=== PATIENT | male | born 1985 | race Caucasian/White ===

== ENCOUNTER 2021-10-10 08:36 | Day surgery (SDC) | payer OTHER ==
[~2021-10-10] VITALS: Ht 172.7 cm; Wt 106.4 kg
--- NOTE | 2021-10-10 11:07 | NUR ---
10/10/21 1107 SUSAN MCBRIDE PT WAS SLOW TO WAKE AND STILL GROGGY AT DC. EDUCATION WAS PROVIDED REGARDING POSSIBLE SLOWER METABOLISM OF THE PROPOFOL IN HIS SYSTEM DUE TO HIS LIVER DZ. ADVISED TO HOUSE REST AND HAVE SOMEONE CLOSE BY UNTIL SEDATION AFFECTS WEAR OFF. PT STATED THAT HE WAS AWAKE AND READY TO DC. PT WAS ABLE TO STAND AND WALK BUT RN WHEELED PT TO CAR.
== END 2021-10-10 10:50 | disposition home or self-care (01) ==
LOC: ORSCSDS 08:36
PROVIDERS: Student in an Organized Health Care Education/Training Program
PROC: 06L38CZ Occlusion of Esophageal Vein with Extraluminal Device, Via Natural or Artificial Opening Endoscopic (ICD-10-PCS; principal; 2021-10-10 09:45)
DX: K74.60 Unspecified cirrhosis of liver (principal); K76.6 Portal hypertension; K31.89 Other diseases of stomach and duodenum; I85.00 Esophageal varices without bleeding; K21.9 Gastro-esophageal reflux disease without esophagitis; E66.9 Obesity, unspecified; Z68.36 Body mass index [BMI] 36.0-36.9, adult; Z79.899 Other long term (current) drug therapy
CPT/HCPCS: J2405; J2704; J7120

== ENCOUNTER 2021-12-07 10:12 | Day surgery (SDC) | payer OTHER ==
[~2021-12-07] VITALS: Ht 175.3 cm; Wt 110.6 kg
[~2021-12-07 10:12] MED LIST: ALDACTONE25 MG; Inderal 20 mg T20 MG PO; PANTOPRAZOLE SO20 M1 PO
--- NOTE | 2021-12-07 10:43 | NUR ---
12/07/21 ANTOINE ALMAGUER 2 ATTMEPTS AT IV. FIRST ATTEMPT BY MA IN R HAND UNABLE TO ADVANCE. SECOND ATTEMPT BY MA IN R HAND SUCCESSFUL.
== END 2021-12-07 11:44 | disposition home or self-care (01) ==
LOC: ORSCSDS 10:12
PROVIDERS: Student in an Organized Health Care Education/Training Program
PROC: 0DJ08ZZ Inspection of Upper Intestinal Tract, Via Natural or Artificial Opening Endoscopic (ICD-10-PCS; principal; 2021-12-07 11:15)
DX: K70.30 Alcoholic cirrhosis of liver without ascites (principal); K76.6 Portal hypertension; K31.89 Other diseases of stomach and duodenum; I85.10 Secondary esophageal varices without bleeding; K21.9 Gastro-esophageal reflux disease without esophagitis; E66.9 Obesity, unspecified; Z68.36 Body mass index [BMI] 36.0-36.9, adult; Z79.899 Other long term (current) drug therapy
CPT/HCPCS: J2704; J7120

== ENCOUNTER 2022-03-20 14:33 | Day surgery (SDC) | payer OTHER | END 2022-03-20 23:24 | disposition home or self-care (01) | LOC: US 14:33 | DX: K70.31 Alcoholic cirrhosis of liver with ascites (principal) | CPT/HCPCS: 76705 ==

== ENCOUNTER 2022-04-07 08:42 | Emergency (ER) | payer OTHER ==
[~2022-04-07] VITALS: Ht 175.3 cm; Wt 115.7 kg
[2022-04-07 09:45] LABS: BASOPHILS ABSOLUTE AUTO 0.02 K/mm3 (0.00-0.23); BASOPHILS PERCENT AUTO 0 % (0-2); EOSINOPHILS ABSOLUTE AUTO 0.02 K/mm3 (0.00-0.68); EOSINOPHILS PERCENT AUTO 0 % (0-6); Hematocrit 46.8 % (37.0-53.0); Hemoglobin 16.4 g/dL (13.5-17.5); IMMATURE GRAN ABSOLUTE AUTO 0.03 K/mm3 (0.00-0.10); IMMATURE GRAN PERCENT AUTO 0 % (0-1); LYMPHOCYTES ABSOLUTE AUTO 1.11 K/mm3 (0.84-5.20); LYMPHOCYTES PERCENT AUTO 13 % (21-46); MONOCYTES ABSOLUTE AUTO 0.46 K/mm3 (0.16-1.47); MONOCYTES PERCENT AUTO 5 % (4-13); Mean Corpuscular HGB 31.6 pg (26.0-34.0); Mean Corpuscular Volume 90 fL (80-100); NEUTROPHILS ABSOLUTE AUTO 6.83 K/mm3 (1.96-9.15); NEUTROPHILS PERCENT AUTO 81 % (41-73); Platelet Count 94 K/mm3 (150-400); RDW Coefficient Variation 13.9 % (11.7-14.2); RDW Standard Deviation 46.4 fL (35.1-46.3); Red Blood Cell Count 5.19 M/mm3 (4.30-5.90); White Blood Cell Count 8.47 K/mm3 (4.00-11.30)
[2022-04-07] MEDS ORDERED: Robaxin750 MG PO (09:58)
[2022-04-07] MEDS ORDERED: CONSTULOSE10 GM/15 M PO (09:58)
[2022-04-07 10:07] LABS: Albumin, Blood 2.9 g/dL (3.4-5.0); Albumin/Globulin Ratio 0.6 (0.8-1.8); Bilirubin, Total 1.5 mg/dL (0.1-1.0); Bun/Creatinine Ratio 18.5 (12.0-20.0); Calcium, Blood 8.7 mg/dL (8.5-10.1); Creatinine, Blood 0.65 mg/dL (0.60-1.20); Globulin, Blood 5.1 g/dL (2.2-4.0); Potassium, Blood 4.7 mmol/L (3.5-5.5)
[2022-04-07 12:06] LABS: Source, Urine Clean Catch
[2022-04-07 12:14] LABS: Appearance, Urine Clear (Clear); Bilirubin, Urine Neg (Neg); Blood, Urine 4+ (Neg); Color, Urine Yellow (P-Yellow); Glucose Qualitative, Urine Neg (Neg); Ketones, Urine Neg (Neg); Leukocyte Esterase, Urine Neg (Neg); Nitrite, Urine Neg (Neg); Protein, Urine 2+ (Neg); Urobilinogen, Urine NORM (Normal); pH, Urine 6.5 (5.0-8.0)
[2022-04-07 12:36] LABS: Bacteria Rare /hpf; Red Blood Cells, Urine 0-2 /hpf (0-2); Squamous Epithelial Cells Rare /hpf (Few); White Blood Cells, Urine 0-2 /hpf (0-5)
[2022-04-07] MEDS ORDERED: IBUP800 PO (13:34)
[2022-04-07] MEDS ORDERED: ONDA4ODT MM (13:34)
== END 2022-04-07 14:11 | disposition home or self-care (01) ==
LOC: ER 08:42
PROVIDERS: Physician Assistant
DX: N23 Unspecified renal colic (principal); I10 Essential (primary) hypertension; Z87.891 Personal history of nicotine dependence; Z79.899 Other long term (current) drug therapy; Z87.442 Personal history of urinary calculi
CPT/HCPCS: 36415; 80053; 81001; 83690; 85025; J1885; J2270; J2405; J7030

== ENCOUNTER 2022-09-18 17:46 | Emergency (ER) | payer OTHER ==
[~2022-09-18] VITALS: Ht 175.3 cm; Wt 108.9 kg
[~2022-09-18 17:46] MED LIST changes: +CONSTULOSE10 GM/15 M PO; +IBUP800 PO; +ONDA4ODT MM; +Robaxin750 MG PO
[2022-09-18 18:23] LABS: BASOPHILS ABSOLUTE AUTO 0.02 K/mm3 (0.00-0.23); BASOPHILS PERCENT AUTO 0 % (0-2); EOSINOPHILS ABSOLUTE AUTO 0.01 K/mm3 (0.00-0.68); EOSINOPHILS PERCENT AUTO 0 % (0-6); Hematocrit 49.7 % (37.0-53.0); Hemoglobin 17.5 g/dL (13.5-17.5); IMMATURE GRAN ABSOLUTE AUTO 0.01 K/mm3 (0.00-0.10); IMMATURE GRAN PERCENT AUTO 0 % (0-1); LYMPHOCYTES ABSOLUTE AUTO 2.38 K/mm3 (0.84-5.20); LYMPHOCYTES PERCENT AUTO 34 % (21-46); MONOCYTES ABSOLUTE AUTO 0.41 K/mm3 (0.16-1.47); MONOCYTES PERCENT AUTO 6 % (4-13); Mean Corpuscular HGB 31.5 pg (26.0-34.0); Mean Corpuscular HGB Conc 35.2 g/dL (31.5-36.5); Mean Corpuscular Volume 90 fL (80-100); Mean Platelet Volume 11.8 fL (9.1-12.4); NEUTROPHILS ABSOLUTE AUTO 4.21 K/mm3 (1.96-9.15); NEUTROPHILS PERCENT AUTO 60 % (41-73); Platelet Count 112 K/mm3 (150-400); RDW Coefficient Variation 13.5 % (11.7-14.2); RDW Standard Deviation 44.1 fL (35.1-46.3); Red Blood Cell Count 5.55 M/mm3 (4.30-5.90); White Blood Cell Count 7.04 K/mm3 (4.00-11.30)
[2022-09-18 18:41] LABS: Source, Urine Clean Catch
[2022-09-18 18:42] LABS: Albumin/Globulin Ratio 0.9 (0.8-1.8); Bun/Creatinine Ratio 15.9 (12.0-20.0); Calcium, Blood 9.2 mg/dL (8.5-10.1); Creatinine, Blood 0.69 mg/dL (0.60-1.20); Globulin, Blood 4.4 g/dL (2.2-4.0); Potassium, Blood 3.7 mmol/L (3.5-5.5); Total Protein, Blood 8.4 g/dL (6.4-8.2)
[2022-09-18 19:07] LABS: Appearance, Urine Bloody (Clear); Blood, Urine 5+ (Neg); Color, Urine Red (P-Yellow); Glucose Qualitative, Urine Neg (Neg); Ketones, Urine 3+ (Neg); Leukocyte Esterase, Urine 2+ (Neg); Nitrite, Urine Pos (Neg); Protein, Urine 3+ (Neg); Urobilinogen, Urine 2+ (Normal)
[2022-09-18 19:17] LABS: Bilirubin, Urine 1+ (Neg)
[2022-09-18 19:21] LABS: Red Blood Cells, Urine TNTC /hpf (0-2); Squamous Epithelial Cells Rare /hpf (Few)
[2022-09-18 19:22] LABS: Bacteria Mod /hpf; Mucus Mod (0-Heavy)
[2022-09-18] MEDS ORDERED: CEPH500 PO (21:03)
[2022-09-18 21:15] VITALS: BP 139/86
== END 2022-09-18 21:27 | disposition home or self-care (01) ==
LOC: ER 17:46
PROVIDERS: Emergency Medicine
DX: N39.0 Urinary tract infection, site not specified (principal); I10 Essential (primary) hypertension; Z88.8 Allergy status to other drugs, medicaments and biological substances; Z87.891 Personal history of nicotine dependence
CPT/HCPCS: 74176; 80053; 81001; 85025; 87086; 96374; 96375; 99284-25; A9270; J0696; J3010

== ENCOUNTER 2022-10-15 10:49 | Emergency (ER) | payer OTHER ==
[~2022-10-15] VITALS: Ht 175.3 cm; Wt 102.1 kg
[~2022-10-15 10:49] MED LIST changes: +CEPH500 PO
[2022-10-15 11:02] VITALS: BP 153/85
[2022-10-15] MEDS ORDERED: Bactrim Ds Tab1 EACH PO (11:36)
[2022-10-15] MEDS ORDERED: CEPH500 PO (11:36)
== END 2022-10-15 15:50 | disposition home or self-care (01) ==
LOC: ER 10:49
DX: L08.9 Local infection of the skin and subcutaneous tissue, unspecified (principal); I10 Essential (primary) hypertension; Z79.899 Other long term (current) drug therapy; Z87.891 Personal history of nicotine dependence
CPT/HCPCS: 99282

== ENCOUNTER 2022-10-17 20:01 | Inpatient (IN) | payer OTHER ==
[~2022-10-17] VITALS: Ht 175.3 cm; Wt 97.7 kg
[~2022-10-17 20:01] MED LIST changes: +Bactrim Ds Tab1 EACH PO
[2022-10-17 21:03] LABS: BASOPHILS ABSOLUTE AUTO 0.01 K/mm3 (0.00-0.23); BASOPHILS PERCENT AUTO 0 % (0-2); EOSINOPHILS ABSOLUTE AUTO 0.02 K/mm3 (0.00-0.68); EOSINOPHILS PERCENT AUTO 0 % (0-6); Hemoglobin 15.8 g/dL (13.5-17.5); IMMATURE GRAN ABSOLUTE AUTO 0.02 K/mm3 (0.00-0.10); IMMATURE GRAN PERCENT AUTO 0 % (0-1); LYMPHOCYTES ABSOLUTE AUTO 2.18 K/mm3 (0.84-5.20); LYMPHOCYTES PERCENT AUTO 26 % (21-46); MONOCYTES ABSOLUTE AUTO 0.77 K/mm3 (0.16-1.47); MONOCYTES PERCENT AUTO 9 % (4-13); Mean Corpuscular HGB 31.4 pg (26.0-34.0); Mean Corpuscular HGB Conc 34.3 g/dL (31.5-36.5); Mean Corpuscular Volume 92 fL (80-100); Mean Platelet Volume 11.4 fL (9.1-12.4); NEUTROPHILS ABSOLUTE AUTO 5.44 K/mm3 (1.96-9.15); NEUTROPHILS PERCENT AUTO 65 % (41-73); Platelet Count 120 K/mm3 (150-400); RDW Coefficient Variation 13.8 % (11.7-14.2); RDW Standard Deviation 46.8 fL (35.1-46.3); Red Blood Cell Count 5.03 M/mm3 (4.30-5.90); White Blood Cell Count 8.44 K/mm3 (4.00-11.30)
[2022-10-17 21:27] LABS: Albumin, Blood 3.5 g/dL (3.4-5.0); Albumin/Globulin Ratio 0.8 (0.8-1.8); Bilirubin, Total 1.2 mg/dL (0.1-1.0); Bun/Creatinine Ratio 15.6 (12.0-20.0); Creatinine, Blood 0.71 mg/dL (0.60-1.20); Globulin, Blood 4.6 g/dL (2.2-4.0); Total Protein, Blood 8.1 g/dL (6.4-8.2)
[2022-10-17] MEDS ORDERED: SULTRIDS PO (23:46)
[2022-10-17] MEDS ORDERED: CEPH500 PO (23:47)
[2022-10-18 00:20] VITALS: BP 141/88
--- NOTE | 2022-10-18 04:51 | NUR ---
SHIFT SUMMARY 37 YR M ADMITTED THIS A.M. FOR CELLULITIS OF BLE. FULL CODE. ASSUMED CARE OF PT JUST AFTER MIDNIGHT. HE HAS MULTIPLE SCAB TYPR WOUNDS ON HIS LOWER EXTREMITIES AND INNER UPPER THIGHS THAT ARE RED, SWOLLEN, AND PAINFUL. HE IS A&O X 4 AND IS INDEPENDANT IN THE ROOM. ONCE HE WAS SETTLED IN HE ATE AND SLEPT.
[2022-10-18 05:07] VITALS: BP 133/69
[2022-10-18 06:00] LABS: BASOPHILS ABSOLUTE AUTO 0.02 K/mm3 (0.00-0.23); BASOPHILS PERCENT AUTO 0 % (0-2); EOSINOPHILS ABSOLUTE AUTO 0.07 K/mm3 (0.00-0.68); EOSINOPHILS PERCENT AUTO 1 % (0-6); Hematocrit 42.4 % (37.0-53.0); Hemoglobin 14.7 g/dL (13.5-17.5); IMMATURE GRAN ABSOLUTE AUTO 0.02 K/mm3 (0.00-0.10); IMMATURE GRAN PERCENT AUTO 0 % (0-1); LYMPHOCYTES ABSOLUTE AUTO 1.42 K/mm3 (0.84-5.20); LYMPHOCYTES PERCENT AUTO 21 % (21-46); MONOCYTES PERCENT AUTO 7 % (4-13); Mean Corpuscular HGB 31.5 pg (26.0-34.0); Mean Corpuscular HGB Conc 34.7 g/dL (31.5-36.5); Mean Corpuscular Volume 91 fL (80-100); Mean Platelet Volume 12.2 fL (9.1-12.4); NEUTROPHILS ABSOLUTE AUTO 4.86 K/mm3 (1.96-9.15); NEUTROPHILS PERCENT AUTO 71 % (41-73); Platelet Count 99 K/mm3 (150-400); RDW Coefficient Variation 13.9 % (11.7-14.2); RDW Standard Deviation 46.9 fL (35.1-46.3); Red Blood Cell Count 4.66 M/mm3 (4.30-5.90); White Blood Cell Count 6.89 K/mm3 (4.00-11.30)
[2022-10-18 06:21] LABS: Albumin/Globulin Ratio 0.7 (0.8-1.8); Bilirubin, Total 0.9 mg/dL (0.1-1.0); Bun/Creatinine Ratio 17.6 (12.0-20.0); Calcium, Blood 8.5 mg/dL (8.5-10.1); Creatinine, Blood 0.68 mg/dL (0.60-1.20); Globulin, Blood 4.1 g/dL (2.2-4.0); Magnesium, Blood 2.1 mg/dL (1.6-2.4); Potassium, Blood 3.9 mmol/L (3.5-5.5); Total Protein, Blood 7.1 g/dL (6.4-8.2)
[2022-10-18 07:55] VITALS: BP 136/76
[2022-10-18 16:41] VITALS: BP 145/75
--- NOTE | 2022-10-18 17:33 | NUR ---
SUMMARY- NO ACUTE EVENTS THIS SHIFT. PT HAD MILD-MODERATE PAIN-WELL CONTROLLED WITH OXY 5MG. INDEPENDENT IN ROOM. AAOX4.
[2022-10-18 20:05] VITALS: BP 140/80
[2022-10-18 22:02] LABS: Vancomycin, Trough 10.9 ug/mL (5.0-10.0)
[2022-10-19 04:30] VITALS: BP 130/64
--- NOTE | 2022-10-19 04:33 | NUR ---
SHIFT SUMMARY 37 YR M ADMITTED ON 10/17/22 FOR CELLULITIS OF BLE. FULL CODE. NO ACUTE CHANGES THIS SHIFT. PT STATED THAT WHILE HE WAS IN THE SHOWER THIS EVENING HE WAS FEELING ONE OF THE BUMPS IN HIS LEFT ARMPIT AND HE FELT IT "POP" UNDER THE SKIN. HE C/O PAIN IN THE AREAS OF THE SORES W/ THE WORST BEING ON HIS LEFT INNER THIGH. THAT WAS THE LESION THAT A CULTURE SAMPLE WAS TAKEN FROM DURING THE LAST SHIFT. NO RESULTS YET. PAIN SEEMS TO BE WELL CONTROLLED WITH PAIN MEDS PER EMAR. PT IS A&O X 4 AND INDEPENDANT IN THE ROOM. HIS AND CHILDREN WERE AT BEDSIDE AT THE BEGINNING OG THIS SHIFT.
[2022-10-19 08:01] VITALS: BP 134/74
[2022-10-19 15:11] VITALS: BP 141/81
--- NOTE | 2022-10-19 18:42 | NUR ---
PT QUITE PLEASANT TODAY. DR LAZAR IN TO SEE PT. PLAN FOR I&D TOMORROW AM. WILL BE NPO MIDNITE AND FOLLOW WITH PROCEDURE IN AM. SAT AM. PT AMBULATED ABOUT ROOM INDEPENDANT PRN. MED PER EMAR FOR PAIN. NO NEW CONCERNS NOTED. BED IN LOW POSITION, CALL LITE IN REACH, CALLS APPRP
[2022-10-19 20:26] VITALS: BP 157/88
[2022-10-19 22:10] LABS: Vancomycin, Trough 12.6 ug/mL (5.0-10.0)
[2022-10-20] VITALS (15 sets, daily range): BP systolic 130–163; BP diastolic 70–88
[2022-10-20 07:03] LABS: Hematocrit 41.6 % (37.0-53.0); Hemoglobin 14.5 g/dL (13.5-17.5); Mean Corpuscular HGB 31.9 pg (26.0-34.0); Mean Corpuscular HGB Conc 34.9 g/dL (31.5-36.5); Mean Corpuscular Volume 91 fL (80-100); Mean Platelet Volume 11.9 fL (9.1-12.4); Platelet Count 100 K/mm3 (150-400); RDW Coefficient Variation 13.5 % (11.7-14.2); RDW Standard Deviation 45.9 fL (35.1-46.3); Red Blood Cell Count 4.55 M/mm3 (4.30-5.90); White Blood Cell Count 4.44 K/mm3 (4.00-11.30)
[2022-10-20 07:20] LABS: Bun/Creatinine Ratio 12.8 (12.0-20.0); Calcium, Blood 8.8 mg/dL (8.5-10.1); Creatinine, Blood 0.63 mg/dL (0.60-1.20); Potassium, Blood 3.8 mmol/L (3.5-5.5)
--- NOTE | 2022-10-20 07:44 | NUR ---
nicko had an uneventful night. BP slightly high in the 150's. patient was given Culbertson for left hip and thigh pain only once overnight. Toradol given also around 2300. NPO after 2400 for I&D this AM with Dr. Guzman. Vancomycin trough yesterday evening was 12.5 1500mg IV Vancomycin given after pharmacy confirmation. Did not want pain medication when offered this morning
--- NOTE | 2022-10-20 08:20 | NUR ---
0745 TO DAY SURG
--- NOTE | 2022-10-20 08:50 | NUR ---
10/20/22 0850 Nabeel Melchor I IODOFORM PACKING WAS USED ON FIVE OPERATIVE SITES; LEFT HIP, LEFT UPPER MEDIAL THIGH, RIGHT LOWER LATERAL LEG, RIGHT LOWER MEDIAL THIGH, AND LEFT AXILLA.
--- NOTE | 2022-10-20 11:52 | NUR ---
0915 MEDICAL TYPIST STATES PT DID WELL, 50 MCG FENTANYL FOR PAIN. HIP WAS WORST OF ISSUE. ALL LANCED. PACKED WITH IDAFORM, FOAM DRESSING OVER. TO TRANSFER BACK TO ROOM.
--- NOTE | 2022-10-20 17:17 | NUR ---
PT HAD I/D TODAY. TOLERATED WELL. DR DAWN TALKED TO [facility] INFECT DISEASE AND IS LOOKING TO SEE WHAT MED MAY BE SENT HOME ON AND IF CAN BE PO. DR LAZAR OKAY WITH REPLACE MEPILEX NEEDED. LEAVE PACKING IN IF CAN, BUT IF COMES OUT, OKAY. HE WILL SEE PT TOMORROW AND VIEW WOUND SITES. PAIN MANAGED WITH AVAIL MEDS. NO NEW CONCERNS NOTED. BED IN LOW POSITION, CALL LITE IN REACH, CALLS APROP
[2022-10-21 01:57] VITALS: BP 124/68
--- NOTE | 2022-10-21 07:23 | NUR ---
DRESSINGS REMAINED INTACT OVERNIGHT. LEFT THIGH AND HIP CAUSING THE MOST DISCOMFORT FOR RAY THEY DID PRIOR TO SURGERY. PAIN MANAGED TO A TOLERABLE LEVEL WITH OXYCODONE AND TORADOL.
[2022-10-21 07:37] VITALS: BP 141/76
[2022-10-21] MEDS ORDERED: Calcium Carbon500 MG PO (14:18)
[2022-10-21] MEDS ORDERED: ACET325 PO (14:18)
[2022-10-21] MEDS ORDERED: OXYC5 PO (14:19)
[2022-10-21] MEDS ORDERED: Nicoderm Cq1 EAC1 TOP (14:19)
[2022-10-21] MEDS ORDERED: LACT PO (14:20)
--- NOTE | 2022-10-21 16:03 | NUR ---
DISCHARGE REVIEWED WITH PT. HE VERBALIZED UNDERSTANDING MEDS AND INST. PT RECEIVED RX FOR TIME OFF AND FOR OXY. IV PULLED INTACT. NO TELE PT WALKED TO DOOR AT 1541
== END 2022-10-21 15:45 | disposition home or self-care (01) | DRG 603 ==
LOC: ER 20:01 → MEDS 23:46
PROVIDERS: Internal Medicine; Physician Assistant; Surgery; ADMIT Student in an Organized Health Care Education/Training Program
PROC: 0J9L0ZZ Drainage of Right Upper Leg Subcutaneous Tissue and Fascia, Open Approach (ICD-10-PCS; 2022-10-20)
PROC: 0J9M0ZZ Drainage of Left Upper Leg Subcutaneous Tissue and Fascia, Open Approach (ICD-10-PCS; 2022-10-20)
PROC: 0J9N0ZZ Drainage of Right Lower Leg Subcutaneous Tissue and Fascia, Open Approach (ICD-10-PCS; 2022-10-20)
PROC: 0X950ZZ Drainage of Left Axilla, Open Approach (ICD-10-PCS; principal; 2022-10-20 07:30)
DX: L03.115 Cellulitis of right lower limb (principal); L02.214 Cutaneous abscess of groin; L02.412 Cutaneous abscess of left axilla; L02.411 Cutaneous abscess of right axilla; L03.116 Cellulitis of left lower limb; L02.416 Cutaneous abscess of left lower limb; L02.415 Cutaneous abscess of right lower limb; B95.62 Methicillin resistant Staphylococcus aureus infection as the cause of diseases classified elsewhere; K70.30 Alcoholic cirrhosis of liver without ascites; E66.9 Obesity, unspecified; F10.11 Alcohol abuse, in remission; I10 Essential (primary) hypertension; Z87.442 Personal history of urinary calculi; Z87.19 Personal history of other diseases of the digestive system; Z87.891 Personal history of nicotine dependence; Z79.899 Other long term (current) drug therapy; Z68.33 Body mass index [BMI] 33.0-33.9, adult; Z98.890 Other specified postprocedural states; Z79.2 Long term (current) use of antibiotics
CPT/HCPCS: 36415; 80048; 80053; 80202; 83605; 83735; 85025; 85027; 85651; 87040; 87070; 87075; 87077; 87147; 87186; 87205; 96365; 96366; 99284-25; A9270; C1751; C9113; J1100; J1650; J1885; J2250; J2370; J2405; J2704; J3010; J3370; J7050

== ENCOUNTER 2022-12-05 11:38 | Emergency (ER) | payer OTHER ==
[~2022-12-05] VITALS: Ht 175.3 cm; Wt 97.5 kg
[~2022-12-05 11:38] MED LIST changes: +ACET325 PO; +Calcium Carbon500 MG PO; +LACT PO; +Nicoderm Cq1 EAC1 TOP; +OXYC5 PO; +SULTRIDS PO
[2022-12-05 12:00] VITALS: BP 134/98
[2022-12-05 12:03] LABS: BASOPHILS PERCENT AUTO 0 % (0-2); EOSINOPHILS ABSOLUTE AUTO 0.03 K/mm3 (0.00-0.68); EOSINOPHILS PERCENT AUTO 1 % (0-6); Hematocrit 51.2 % (37.0-53.0); Hemoglobin 18.2 g/dL (13.5-17.5); IMMATURE GRAN ABSOLUTE AUTO 0.02 K/mm3 (0.00-0.10); IMMATURE GRAN PERCENT AUTO 0 % (0-1); LYMPHOCYTES PERCENT AUTO 43 % (21-46); MONOCYTES ABSOLUTE AUTO 0.47 K/mm3 (0.16-1.47); MONOCYTES PERCENT AUTO 8 % (4-13); Mean Corpuscular HGB 32.3 pg (26.0-34.0); Mean Corpuscular HGB Conc 35.5 g/dL (31.5-36.5); Mean Corpuscular Volume 91 fL (80-100); Mean Platelet Volume 11.1 fL (9.1-12.4); NEUTROPHILS ABSOLUTE AUTO 3.08 K/mm3 (1.96-9.15); NEUTROPHILS PERCENT AUTO 49 % (41-73); Platelet Count 146 K/mm3 (150-400); RDW Coefficient Variation 14.9 % (11.7-14.2); Red Blood Cell Count 5.63 M/mm3 (4.30-5.90)
[2022-12-05 12:31] LABS: Albumin, Blood 3.7 g/dL (3.4-5.0); Albumin/Globulin Ratio 0.8 (0.8-1.8); Bilirubin, Total 1.2 mg/dL (0.1-1.0); Bun/Creatinine Ratio 21.4 (12.0-20.0); Calcium, Blood 9.2 mg/dL (8.5-10.1); Creatinine, Blood 0.56 mg/dL (0.60-1.20); Globulin, Blood 4.5 g/dL (2.2-4.0); Potassium, Blood 3.7 mmol/L (3.5-5.5); Total Protein, Blood 8.2 g/dL (6.4-8.2)
[2022-12-05] MEDS ORDERED: EPIPEN0.3 MG/0.1 IM (14:10)
[2022-12-05] MEDS ORDERED: PRED20 PO (14:10)
[2022-12-05] MEDS ORDERED: FAMO20 PO (14:10)
[2022-12-05] MEDS ORDERED: DIPH50 PO (14:10)
== END 2022-12-05 15:19 | disposition home or self-care (01) ==
LOC: ER 11:38
PROVIDERS: Emergency Medicine
DX: T78.2XXA Anaphylactic shock, unspecified, initial encounter (principal); L50.9 Urticaria, unspecified; I10 Essential (primary) hypertension; Z91.030 Bee allergy status; Z87.891 Personal history of nicotine dependence; X58.XXXA Exposure to other specified factors, initial encounter
CPT/HCPCS: 71045; 80053; 84484; 85025; 93005; 93010; 96361; 96374; 99285-25; J7030

== ENCOUNTER 2023-06-28 04:02 | Emergency (ER) | payer OTHER ==
[~2023-06-28] VITALS: Ht 175.3 cm; Wt 97.5 kg
[~2023-06-28 04:02] MED LIST changes: +DIPH50 PO; +EPIPEN0.3 MG/0.1 IM; +FAMO20 PO; +PRED20 PO
[2023-06-28] MEDS ORDERED: Ketorolac Tromethamine 30mg Vial IV ONE (04:20)
[2023-06-28] MEDS ORDERED: Ondansetron HCl 2 MG / ML 2ML Vial IV ONE (04:20)
[2023-06-28] MEDS ORDERED: NS 1,000 ML IV SCH (04:20)
[2023-06-28 04:37] LABS: BASOPHILS ABSOLUTE AUTO 0.03 K/mm3 (0.00-0.23); BASOPHILS PERCENT AUTO 1 % (0-2); EOSINOPHILS ABSOLUTE AUTO 0.04 K/mm3 (0.00-0.68); EOSINOPHILS PERCENT AUTO 1 % (0-6); Hematocrit 45.1 % (37.0-53.0); Hemoglobin 15.4 g/dL (13.5-17.5); IMMATURE GRAN ABSOLUTE AUTO 0.01 K/mm3 (0.00-0.10); IMMATURE GRAN PERCENT AUTO 0 % (0-1); LYMPHOCYTES PERCENT AUTO 27 % (21-46); MONOCYTES ABSOLUTE AUTO 0.55 K/mm3 (0.16-1.47); MONOCYTES PERCENT AUTO 14 % (4-13); Mean Corpuscular HGB 31.2 pg (26.0-34.0); Mean Corpuscular HGB Conc 34.1 g/dL (31.5-36.5); Mean Corpuscular Volume 92 fL (80-100); NEUTROPHILS ABSOLUTE AUTO 2.35 K/mm3 (1.96-9.15); NEUTROPHILS PERCENT AUTO 58 % (41-73); Platelet Count 114 K/mm3 (150-400); RDW Coefficient Variation 15.1 % (11.7-14.2); Red Blood Cell Count 4.93 M/mm3 (4.30-5.90); White Blood Cell Count 4.08 K/mm3 (4.00-11.30)
[2023-06-28 04:51] LABS: Albumin, Blood 3.2 g/dL (3.4-5.0); Albumin/Globulin Ratio 0.7 (0.8-1.8); Bun/Creatinine Ratio 18.7 (12.0-20.0); Calcium, Blood 8.3 mg/dL (8.5-10.1); Creatinine, Blood 0.75 mg/dL (0.60-1.20); Globulin, Blood 4.4 g/dL (2.2-4.0); Potassium, Blood 3.4 mmol/L (3.5-5.5); Total Protein, Blood 7.6 g/dL (6.4-8.2)
[2023-06-28] MEDS ORDERED: Metoclopramide HCl 5MG / ML 2ML Vial IV ONE (05:10)
[2023-06-28] MEDS ORDERED: FentaNYL Citrate 50 MCG/ML 2 ML Injection IV ONE ×2 (05:15→06:40)
[2023-06-28 08:05] VITALS: BP 134/76
[2023-06-28] MEDS ORDERED: Morphine Sulfate 4 MG/1 ML Injection IV ONE (08:30)
[2023-06-28 08:36] LABS: Source, Urine Clean Catch
[2023-06-28 08:40] LABS: Appearance, Urine Clear (Clear); Bilirubin, Urine Neg (Neg); Blood, Urine 2+ (Neg); Color, Urine Yellow (P-Yellow); Glucose Qualitative, Urine Neg (Neg); Ketones, Urine Neg (Neg); Leukocyte Esterase, Urine Neg (Neg); Nitrite, Urine Neg (Neg); Protein, Urine 2+ (Neg); Specific Gravity, Urine 1.015 (1.003-1.022); Urobilinogen, Urine NORM (Normal)
[2023-06-28] MEDS ORDERED: HYDROCODONE-AC1 EA10 PO (08:52)
[2023-06-28] MEDS ORDERED: Ibuprofen600 MG PO (08:53)
[2023-06-28] MEDS ORDERED: TAMS.4ER PO (08:55)
[2023-06-28 09:17] LABS: Squamous Epithelial Cells Not Seen /hpf (Few)
[2023-06-28 09:18] LABS: Bacteria Rare /hpf; White Blood Cells, Urine 0-2 /hpf (0-5)
== END 2023-06-28 09:50 | disposition home or self-care (01) ==
LOC: ER 04:02
PROVIDERS: Emergency Medicine
DX: N13.2 Hydronephrosis with renal and ureteral calculous obstruction (principal); E86.0 Dehydration; Z91.030 Bee allergy status; Z79.899 Other long term (current) drug therapy; Z79.52 Long term (current) use of systemic steroids; I10 Essential (primary) hypertension; Z87.891 Personal history of nicotine dependence
CPT/HCPCS: 74177; 80053; 81001; 85025; 96361; 96374-59; 96375; 96376; 99284-25; J1885; J2270; J2405; J2765; J3010; J7030; Q9967

== ENCOUNTER 2024-09-05 14:18 | Emergency (ER) | payer OTHER ==
[~2024-09-05] VITALS: Ht 172.7 cm; Wt 127.0 kg
[~2024-09-05 14:18] MED LIST changes: +HYDROCODONE-AC1 EA10 PO; +Ibuprofen600 MG PO; +TAMS.4ER PO
[2024-09-05] MEDS ORDERED: Inderal40 MG PO (16:34)
[2024-09-05] MEDS ORDERED: Prinivil10 MG PO (16:36)
[2024-09-05] MEDS ORDERED: Apixaban 5 MG Tab PO ONE (16:45)
[2024-09-05] MEDS ORDERED: ELIQUIS5 M2 PO (16:48)
[2024-09-05 17:05] VITALS: BP 159/105
== END 2024-09-05 17:05 | disposition home or self-care (01) ==
LOC: ER 14:18
DX: I82.432 Acute embolism and thrombosis of left popliteal vein (principal); I82.812 Embolism and thrombosis of superficial veins of left lower extremity; I10 Essential (primary) hypertension; Z79.52 Long term (current) use of systemic steroids; Z79.899 Other long term (current) drug therapy; Z91.030 Bee allergy status
CPT/HCPCS: 93971; 99283-25

== ENCOUNTER 2024-09-09 17:00 | Emergency (ER) | payer OTHER ==
[~2024-09-09] VITALS: Ht 172.7 cm; Wt 122.5 kg
[~2024-09-09 17:00] MED LIST changes: +ELIQUIS5 M2 PO; +Inderal40 MG PO; +Prinivil10 MG PO
[2024-09-09 17:32] VITALS: BP 131/119
== END 2024-09-09 17:39 | disposition home or self-care (01) ==
LOC: ER 17:00
DX: S70.12XA Contusion of left thigh, initial encounter (principal); Z79.01 Long term (current) use of anticoagulants; Z91.030 Bee allergy status; Z79.899 Other long term (current) drug therapy; Z79.2 Long term (current) use of antibiotics; Z87.891 Personal history of nicotine dependence; X58.XXXA Exposure to other specified factors, initial encounter
CPT/HCPCS: 99282

== ENCOUNTER 2024-11-11 16:26 | Emergency (ER) | payer OTHER ==
[~2024-11-11] VITALS: Ht 170.2 cm; Wt 108.9 kg
[2024-11-11 16:36] VITALS: BP 123/91
== END 2024-11-11 18:30 | disposition home or self-care (01) ==
LOC: ER 16:26
DX: S93.401A Sprain of unspecified ligament of right ankle, initial encounter (principal); Z91.030 Bee allergy status; I10 Essential (primary) hypertension; Z87.442 Personal history of urinary calculi; X50.1XXA Overexertion from prolonged static or awkward postures, initial encounter
CPT/HCPCS: 73610; 99283-25; A9270

== ENCOUNTER 2024-11-18 15:53 | Emergency (ER) | payer OTHER ==
[~2024-11-18] VITALS: Ht 172.7 cm; Wt 113.4 kg
[2024-11-18 16:40] VITALS: BP 180/108
[2024-11-18] MEDS ORDERED: Robaxin750 MG PO (18:10)
[2024-11-18] MEDS ORDERED: RX Prepack 6 Tabs Oxycodone 5mg UD ONE (18:10)
== END 2024-11-18 18:40 | disposition home or self-care (01) ==
LOC: ER 15:53
DX: S82.891A Other fracture of right lower leg, initial encounter for closed fracture (principal); X50.1XXA Overexertion from prolonged static or awkward postures, initial encounter; I10 Essential (primary) hypertension; Z87.891 Personal history of nicotine dependence; Z91.030 Bee allergy status; Z79.01 Long term (current) use of anticoagulants; Z79.899 Other long term (current) drug therapy
CPT/HCPCS: 29515; 73700; 99283-25; A9270

== ENCOUNTER 2025-02-23 12:33 | Inpatient (IN) | payer OTHER ==
[~2025-02-23] VITALS: Ht 172.7 cm; Wt 121.2 kg
[2025-02-23 13:21] LABS: BASOPHILS ABSOLUTE AUTO 0.04 K/mm3 (0.00-0.23); BASOPHILS PERCENT AUTO 1 % (0-2); EOSINOPHILS ABSOLUTE AUTO 0.04 K/mm3 (0.00-0.68); EOSINOPHILS PERCENT AUTO 1 % (0-6); Hematocrit 35.3 % (37.0-53.0); Hemoglobin 12.3 g/dL (13.5-17.5); IMMATURE GRAN ABSOLUTE AUTO 0.06 K/mm3 (0.00-0.10); IMMATURE GRAN PERCENT AUTO 1 % (0-1); LYMPHOCYTES ABSOLUTE AUTO 0.73 K/mm3 (0.84-5.20); LYMPHOCYTES PERCENT AUTO 11 % (21-46); MONOCYTES ABSOLUTE AUTO 0.59 K/mm3 (0.16-1.47); MONOCYTES PERCENT AUTO 9 % (4-13); Mean Corpuscular HGB Conc 34.8 g/dL (31.5-36.5); Mean Corpuscular Volume 96 fL (80-100); NEUTROPHILS ABSOLUTE AUTO 5.04 K/mm3 (1.96-9.15); NEUTROPHILS PERCENT AUTO 78 % (41-73); NRBC ABSOLUTE 0.02 K/mm3 (0.00-0.02); NRBC Auto 0.3 /100 WBC (0.0-0.2); Platelet Count 76 K/mm3 (150-400); RDW Coefficient Variation 17.4 % (11.7-14.2); RDW Standard Deviation 60.5 fL (35.1-46.3)
[2025-02-23 13:58] LABS: Alanine Aminotransfer (ALT/SGP 52.0 U/L (12-78); Albumin, Blood 2.2 g/dL (3.4-5.0); Albumin/Globulin Ratio 0.4 (0.8-1.8); Anion Gap 10.0 mmol/L (3-11); Aspartate Aminotrans (AST/SGOT 195.0 U/L (12-37); Bilirubin, Total 5.5 mg/dL (0.1-1.0); Blood Urea Nitrogen 9.0 mg/dL (8-24); CO2, Blood 20.0 mmol/L (21-32); Calcium, Blood 8.1 mg/dL (8.5-10.1); Chloride, Blood 104.0 mmol/L (98-108); Creatinine, Blood 0.61 mg/dL (0.60-1.20); Globulin, Blood 5.1 g/dL (2.2-4.0); Glucose, Blood 127.0 mg/dL (70-99); Potassium, Blood 3.1 mmol/L (3.5-5.5); Sodium, Blood 131.0 mmol/L (136-145); Total Protein, Blood 7.3 g/dL (6.4-8.2)
[2025-02-23] MEDS ORDERED: Morphine Sulfate 4 MG/1 ML Injection IV ONE (15:20)
[2025-02-23] MEDS ORDERED: Ondansetron HCl 2 MG / ML 2ML Vial IV ONE (15:20)
[2025-02-23] MEDS ORDERED: Zestril30 MG PO (16:07)
[2025-02-23] MEDS ORDERED: PANT20 PO (16:08)
[2025-02-23] MEDS ORDERED: Inderal40 MG PO (16:09)
[2025-02-23] MEDS ORDERED: FLU VACC TS2025-26(6MOS UP)/PF 45 MCG/0.5 ML SYRINGE IM SCH (16:10)
[2025-02-23] MEDS ORDERED: Ondansetron HCl 2 MG / ML 2ML Vial IV PRN (16:15)
[2025-02-23] MEDS ORDERED: Potassium Chl 20MEQ/Water100ML 100 ML IV SCH (16:20)
[2025-02-23 16:57] LABS: LDL/HDL RATIO 5.4
[2025-02-23 16:58] LABS: CHOL/HDL RATIO 9.7; Cholesterol 87 mg/dL (50-200); HDL Cholesterol 9 mg/dL (>39); Low Density Lipoprotein Chol 48 mg/dL (0-110); Triglycerides 148 mg/dL (30-140); Very Low Density Lipoprot Chol 29 mg/dL (6-28)
[2025-02-23] MEDS ORDERED: CefTRIAXone Sodium 2,000 MG in NS 100 ML IV SCH (17:00)
[2025-02-23 18:37] VITALS: BP 131/80
--- NOTE | 2025-02-23 18:46 | NUR ---
ASSUMPTION OF CARE/NKI-HT-HSTBM: REPORT RECEIVED FROM JUAN JAMES @ 8991. PATIENT ARRIVED TO UNIT AT 1826. LR AND ROCEPHIN INFUSING Y-SITE RIGHT WRIST. PATIENT REQUESTING DINNER TRAY. PROVIDED c TRAY AND WATER. PT REQUESTING SOMETHING OTHER THAN WATER, SUCH SODA OR JUICE. PROVIDED c SODA PER REQUEST. DAUGHTER, SON AND AT BEDSIDE. LAB @ BEDSIDE TO DRAW BLOOD.
[2025-02-23 19:15] LABS: Prothrombin Time Results 16.4 Sec (9.7-11.5)
[2025-02-23] MEDS ORDERED: Heparin Sodium,Porcine 5,000 UNIT/0.5 ML SDV SC SCH (21:00)
[2025-02-23] MEDS ORDERED: FentaNYL Citrate 50 MCG/ML 2 ML Injection IV PRN (21:40)
[2025-02-24 03:01] VITALS: BP 145/81
--- NOTE | 2025-02-24 03:39 | NUR ---
SHIFT SUMMARY PATIENT IS ALERT AND ORIENTED. PATIENT HAS HAD NO ACUTE EVENTS THIS SHIFT. VITAL SIGNS REVIEWED. PATIENT HAS COMPLAINED OF PAIN THIS SHIFT AND MEDICATED PER EMAR. PATIENT HAS NO COMPLAINTS OF SOB, NAUSEA OR VOMITTING. LR IS INFUSING AT 150/HR. PATIENT IS PLANNING ON HAVING PARACENTIS TODAY. PATIENT IS AWARE. BED IN LOCKED AND LOWEST POSITION. CALL LIGHT IN PLACE.
[2025-02-24 05:28] LABS: BASOPHILS ABSOLUTE AUTO 0.03 K/mm3 (0.00-0.23); BASOPHILS PERCENT AUTO 1 % (0-2); EOSINOPHILS ABSOLUTE AUTO 0.07 K/mm3 (0.00-0.68); EOSINOPHILS PERCENT AUTO 2 % (0-6); Hematocrit 31.3 % (37.0-53.0); Hemoglobin 10.9 g/dL (13.5-17.5); IMMATURE GRAN ABSOLUTE AUTO 0.03 K/mm3 (0.00-0.10); IMMATURE GRAN PERCENT AUTO 1 % (0-1); LYMPHOCYTES ABSOLUTE AUTO 0.80 K/mm3 (0.84-5.20); LYMPHOCYTES PERCENT AUTO 22 % (21-46); MONOCYTES ABSOLUTE AUTO 0.53 K/mm3 (0.16-1.47); MONOCYTES PERCENT AUTO 15 % (4-13); Mean Corpuscular HGB Conc 34.8 g/dL (31.5-36.5); Mean Corpuscular Volume 98 fL (80-100); NEUTROPHILS ABSOLUTE AUTO 2.20 K/mm3 (1.96-9.15); NEUTROPHILS PERCENT AUTO 60 % (41-73); NRBC ABSOLUTE 0.00 K/mm3 (0.00-0.02); NRBC Auto 0.0 /100 WBC (0.0-0.2); Platelet Count 62 K/mm3 (150-400); RDW Coefficient Variation 17.8 % (11.7-14.2); RDW Standard Deviation 62.8 fL (35.1-46.3)
[2025-02-24 05:49] LABS: Magnesium, Blood 1.3 mg/dL (1.6-2.4); Phosphorus, Blood 3.0 mg/dL (2.5-4.9)
[2025-02-24 07:29] VITALS: BP 133/88
[2025-02-24 07:35] LABS: Alanine Aminotransfer (ALT/SGP 43.0 U/L (12-78); Albumin, Blood 1.8 g/dL (3.4-5.0); Albumin/Globulin Ratio 0.4 (0.8-1.8); Anion Gap 10.0 mmol/L (3-11); Aspartate Aminotrans (AST/SGOT 154.0 U/L (12-37); Bilirubin, Total 4.9 mg/dL (0.1-1.0); Blood Urea Nitrogen 6.0 mg/dL (8-24); CO2, Blood 21.0 mmol/L (21-32); Calcium, Blood 7.4 mg/dL (8.5-10.1); Chloride, Blood 105.0 mmol/L (98-108); Creatinine, Blood 0.55 mg/dL (0.60-1.20); Globulin, Blood 4.1 g/dL (2.2-4.0); Glucose, Blood 88.0 mg/dL (70-99); Potassium, Blood 2.9 mmol/L (3.5-5.5); Sodium, Blood 133.0 mmol/L (136-145); Total Protein, Blood 5.9 g/dL (6.4-8.2)
[2025-02-24] MEDS ORDERED: Magnesium Sulf 2 GM/Water 50ML 50 ML IV ONE (07:45)
[2025-02-24] MEDS ORDERED: Potassium Chl 20MEQ/Water100ML 100 ML IV SCH (08:30)
[2025-02-24] MEDS ORDERED: Morphine Sulfate 4 MG/1 ML Injection IV PRN (11:35)
[2025-02-24 13:14] LABS: Source, Urine Clean Catch
[2025-02-24 14:05] LABS: Color, Urine Amber (P-Yellow); Glucose Qualitative, Urine Neg (Neg); Ketones, Urine Neg (Neg); Leukocyte Esterase, Urine 1+ (Neg); Protein, Urine 1+ (Neg); Specific Gravity, Urine 1.015 (1.003-1.022); Urobilinogen, Urine 4+ (Normal)
[2025-02-24 14:32] LABS: Bilirubin, Urine 3+ (Neg)
[2025-02-24 14:33] LABS: Red Blood Cells, Urine 0-2 /hpf (0-2)
[2025-02-24 15:33] VITALS: BP 147/74
[2025-02-24] MEDS ORDERED: Heparin Sodium,Porcine 5,000 UNIT/0.5 ML SDV SC SCH (16:00)
[2025-02-24 16:15] VITALS: BP 131/63
--- NOTE | 2025-02-24 16:31 | NUR ---
SHIFT SUMMARY PT AOX4, COOPERATIVE, ABLE TO MAKE NEEDS KNOWN. PT IS IND IN ROOM, ON ROOM AIR, NO TELE. TOLERATING MEDICATIONS. SUPPLEMENTING K AND MG IV ALL SHIFT. PT DOES REPORT PAIN IN ABD, FENT DC'D AND SWITCHED TO MORPHINE WHICH PT REPORTS INEFFECTIVE. LIVER ENZYMES HIGH, HOLDING TYLENOL FOR NOW, TOMORROW COULD POSSIBLY START GIVING LOW DOSE TYLENOL, OXY IS EFFECTIVE. NO OTHER ACUTE EVENTS TOOK PLACE THIS SHIFT. LR RUNNING 150ML/HR [employer]. BED IN LOWEST POSITION, CALL LIGHT WITHIN REACH.
[2025-02-24 16:44] LABS: Anion Gap 7.0 mmol/L (3-11); Blood Urea Nitrogen 6.0 mg/dL (8-24); CO2, Blood 23.0 mmol/L (21-32); Calcium, Blood 7.7 mg/dL (8.5-10.1); Chloride, Blood 106.0 mmol/L (98-108); Creatinine, Blood 0.56 mg/dL (0.60-1.20); Glucose, Blood 91.0 mg/dL (70-99); Magnesium, Blood 1.8 mg/dL (1.6-2.4); Potassium, Blood 3.8 mmol/L (3.5-5.5); Sodium, Blood 132.0 mmol/L (136-145)
[2025-02-24 19:36] VITALS: BP 132/68
[2025-02-24 21:48] LABS: Source, Urine Voided
[2025-02-24 21:52] LABS: Glucose Qualitative, Urine Neg (Neg); Ketones, Urine Neg (Neg); Leukocyte Esterase, Urine 1+ (Neg); Protein, Urine 1+ (Neg); Specific Gravity, Urine 1.010 (1.003-1.022); Urobilinogen, Urine 2+ (Normal)
[2025-02-24 21:59] LABS: Bilirubin, Urine 2+ (Neg); Color, Urine Amber (P-Yellow); Red Blood Cells, Urine 0-2 /hpf (0-2); White Blood Cells, Urine 0-2 /hpf (0-5)
[2025-02-25 03:31] VITALS: BP 142/77
[2025-02-25 05:17] LABS: BASOPHILS ABSOLUTE AUTO 0.03 K/mm3 (0.00-0.23); BASOPHILS PERCENT AUTO 1 % (0-2); EOSINOPHILS ABSOLUTE AUTO 0.07 K/mm3 (0.00-0.68); EOSINOPHILS PERCENT AUTO 2 % (0-6); Hematocrit 34.0 % (37.0-53.0); Hemoglobin 11.7 g/dL (13.5-17.5); IMMATURE GRAN ABSOLUTE AUTO 0.05 K/mm3 (0.00-0.10); IMMATURE GRAN PERCENT AUTO 2 % (0-1); LYMPHOCYTES ABSOLUTE AUTO 0.82 K/mm3 (0.84-5.20); LYMPHOCYTES PERCENT AUTO 25 % (21-46); MONOCYTES ABSOLUTE AUTO 0.54 K/mm3 (0.16-1.47); MONOCYTES PERCENT AUTO 16 % (4-13); Mean Corpuscular HGB Conc 34.4 g/dL (31.5-36.5); Mean Corpuscular Volume 99 fL (80-100); NEUTROPHILS ABSOLUTE AUTO 1.83 K/mm3 (1.96-9.15); NEUTROPHILS PERCENT AUTO 55 % (41-73); NRBC ABSOLUTE 0.00 K/mm3 (0.00-0.02); NRBC Auto 0.0 /100 WBC (0.0-0.2); Platelet Count 64 K/mm3 (150-400); RDW Coefficient Variation 18.0 % (11.7-14.2); RDW Standard Deviation 65.1 fL (35.1-46.3)
--- NOTE | 2025-02-25 05:23 | NUR ---
SHIFT SUMMARY 39 YR M ADMITTED ON 02/24/25. FULL CODE. URINE SAMPLE COLLECTED AND SENT TO LAB. PT STATED THAT HE COUGHED UP SOME BLOODY PHLEGM AND NOTICED SOME BLOOD IN HIS URINE WELL. HE STATED THAT HE IS CONCERNED THAT HIS KIDNEY6 FUNCTION IS WORSENING AND ASKED TO HAVE AN EGD TO CHECK HIS ESOPHAGUS. HE IS NOT ACTIVELY BLEEDING AND IS IN NO ACUTE DISTRESS SO HE WAS ADVISED THAT THE ISSUE WOULD BE ADDRESSED IN THE A.M. WHEN HIS DOC DOES HIS ROUNDING. PT AGREEABLE TO THIS. WILL PASS THIS INFO ON TO DAY SHIFT NURSE. PT APPEARS TO BE RESTING COMFORTABLY AT THIS TIME. BED IN LOW POSITION AND CALL LIGHT IN REACH.
[2025-02-25 05:46] LABS: Alanine Aminotransfer (ALT/SGP 43.0 U/L (12-78); Albumin, Blood 1.8 g/dL (3.4-5.0); Albumin/Globulin Ratio 0.4 (0.8-1.8); Anion Gap 8.0 mmol/L (3-11); Aspartate Aminotrans (AST/SGOT 160.0 U/L (12-37); Bilirubin, Total 4.6 mg/dL (0.1-1.0); Blood Urea Nitrogen 4.0 mg/dL (8-24); CO2, Blood 22.0 mmol/L (21-32); Calcium, Blood 7.6 mg/dL (8.5-10.1); Chloride, Blood 108.0 mmol/L (98-108); Creatinine, Blood 0.45 mg/dL (0.60-1.20); Globulin, Blood 4.3 g/dL (2.2-4.0); Glucose, Blood 97.0 mg/dL (70-99); Magnesium, Blood 1.7 mg/dL (1.6-2.4); Phosphorus, Blood 1.9 mg/dL (2.5-4.9); Potassium, Blood 3.5 mmol/L (3.5-5.5); Sodium, Blood 134.0 mmol/L (136-145); Total Protein, Blood 6.1 g/dL (6.4-8.2)
[2025-02-25] MEDS ORDERED: Potassium Phosphate Dibasic 30 MM in Dextrose 5% 500 ML IV STA (06:55)
[2025-02-25] MEDS ORDERED: Enoxaparin 40 MG/0.4 ML SYR SC SCH (08:00)
[2025-02-25 08:28] VITALS: BP 150/95
[2025-02-25] MEDS ORDERED: Morphine Sulfate 4 MG/1 ML Injection IV PRN (11:00)
[2025-02-25 14:36] LABS: Ferritin, Serum 641 ng/mL (26-388)
[2025-02-25 16:05] VITALS: BP 123/82
--- NOTE | 2025-02-25 16:37 | NUR ---
SHIFT SUMMARY NO ACUTE CHANGES. A/Ox4, INDEPENDENT IN ROOM. ABLE TO MAKE NEEDS KNOWN AND USES CALL SYSTEM APPROPRIATELY. NORMAL BM TODAY AFTER ADMINISTRATION OF BOWEL CARE. PT TOLERATING PO INTAKE WITH NO C/O N/V. MEDICATED PER EMAR FOR PAIN - MORPHINE DOSE INCREASED BY PROVIDER DUE TO POOR PAIN MANAGEMENT. MEDICATIONS ADMINISTER PER EMAR. PT RESTING IN HOSPITAL BED ON PHONE, BED IN LOWEST POSITION AND CALL LIGHT IN REACH. PT APPEARS COMFORTABLE AND IN NO DISTRESS. VITALS STABLE. ON RA.
[2025-02-25 19:02] VITALS: BP 140/81
[2025-02-26 04:58] VITALS: BP 136/82
[2025-02-26 05:12] LABS: BASOPHILS ABSOLUTE AUTO 0.03 K/mm3 (0.00-0.23); BASOPHILS PERCENT AUTO 1 % (0-2); EOSINOPHILS ABSOLUTE AUTO 0.06 K/mm3 (0.00-0.68); EOSINOPHILS PERCENT AUTO 2 % (0-6); Hematocrit 33.2 % (37.0-53.0); Hemoglobin 11.1 g/dL (13.5-17.5); IMMATURE GRAN ABSOLUTE AUTO 0.07 K/mm3 (0.00-0.10); IMMATURE GRAN PERCENT AUTO 3 % (0-1); LYMPHOCYTES ABSOLUTE AUTO 0.85 K/mm3 (0.84-5.20); LYMPHOCYTES PERCENT AUTO 30 % (21-46); MONOCYTES ABSOLUTE AUTO 0.53 K/mm3 (0.16-1.47); MONOCYTES PERCENT AUTO 19 % (4-13); Mean Corpuscular HGB Conc 33.4 g/dL (31.5-36.5); Mean Corpuscular Volume 101 fL (80-100); NEUTROPHILS ABSOLUTE AUTO 1.26 K/mm3 (1.96-9.15); NEUTROPHILS PERCENT AUTO 45 % (41-73); NRBC ABSOLUTE 0.00 K/mm3 (0.00-0.02); NRBC Auto 0.0 /100 WBC (0.0-0.2); Platelet Count 69 K/mm3 (150-400); RDW Coefficient Variation 18.2 % (11.7-14.2); RDW Standard Deviation 67.7 fL (35.1-46.3)
[2025-02-26 05:53] LABS: Alanine Aminotransfer (ALT/SGP 43.0 U/L (12-78); Albumin, Blood 1.7 g/dL (3.4-5.0); Albumin/Globulin Ratio 0.4 (0.8-1.8); Anion Gap 6.0 mmol/L (3-11); Aspartate Aminotrans (AST/SGOT 151.0 U/L (12-37); Bilirubin, Total 4.0 mg/dL (0.1-1.0); Blood Urea Nitrogen 5.0 mg/dL (8-24); CO2, Blood 26.0 mmol/L (21-32); Calcium, Blood 7.6 mg/dL (8.5-10.1); Chloride, Blood 107.0 mmol/L (98-108); Creatinine, Blood 0.58 mg/dL (0.60-1.20); Globulin, Blood 4.3 g/dL (2.2-4.0); Glucose, Blood 95.0 mg/dL (70-99); Magnesium, Blood 1.5 mg/dL (1.6-2.4); Phosphorus, Blood 2.7 mg/dL (2.5-4.9); Potassium, Blood 3.5 mmol/L (3.5-5.5); Sodium, Blood 135.0 mmol/L (136-145); Total Protein, Blood 6.0 g/dL (6.4-8.2)
[2025-02-26] MEDS ORDERED: Potassium Phosphate Dibasic 30 MM in Dextrose 5% 500 ML IV STA (06:36)
--- NOTE | 2025-02-26 06:38 | NUR ---
SHIFT SUMMARY A&OX4. INDEPENDENT IN ROOM. PT CONTINUES TO C/O PAIN IN THE RUQ MORE THAN THE EPIGASTRIUM, APPROXIMATELY 7-8. MEDICATED PER JUL. NO COMPLAINTS OF N/V THIS EVENING. PT RESTING IN BED. WAKES THROUGHOUT NIGHT. DOES APPEAR JAUNDICED, AND IS DIAPHORETIC. LR @ 150 ML/HR IN LFA IV. L WRIST IV IS DISLODGED OVERNIGHT DURING PT SLEEP. TOLERATING PO INTAKE WELL. PT EXPRESSES INTEREST IN TRANSITIONING PAIN MANAGEMENT TO PCP, BUT DOES NOT CURRENTLY HAVE OUTPT PAIN MANAGEMENT FOR PANCREATITIS/LIVER CIRRHOSIS.
[2025-02-26] MEDS ORDERED: Magnesium Sulf 2 GM/Water 50ML 50 ML IV ONE (06:45)
[2025-02-26] MEDS ORDERED: NS 250 ML IV PRN (06:45)
[2025-02-26 07:48] VITALS: BP 152/79
[2025-02-26] MEDS ORDERED: Albuterol 2.5 MG/3 ML VIAL INH ONE (12:45)
[2025-02-26] MEDS ORDERED: Albuterol 2.5 MG/3 ML VIAL ONE (12:47)
[2025-02-26 16:24] VITALS: BP 120/75
--- NOTE | 2025-02-26 16:52 | NUR ---
SHIFT SUMMARY: PATIENT A/OX4, PLEASANT AND COOPERATIVE c CARE. PATIENT MEDICATED FOR R ABDOMINAL PAIN PER EMAR c MOD EFFECT. PATIENT EATING AND DRINKING WELL, DENIES N/V THIS SHIFT. PATIENT HAS DEPENDENT EDEMA TO ABDOMEN, HIP, BLE'S, LUNGS WHEEZY T/O TO AUSCULTATION. DR. DOTSON IS AWARE, ORDERED X-RAY, IS AND OT DOSE IV LASIX. PATIENT USES IS T/O THE DAY, RECEIVED IV LASIX PER ORDER, X-RAY DONE TODAY, AWAITING FOR RESULT. PATIENT HAS HAD NO COMPLAINTS OR DENIES NEW CONCERN THIS SHIFT. VITAL SIGNS REVIEWED. BED IN LOWEST POSITION. CALL LIGHT IN REACH.
[2025-02-26 20:15] VITALS: BP 131/83
[2025-02-27 02:20] VITALS: BP 138/74
[2025-02-27 05:14] LABS: BASOPHILS ABSOLUTE AUTO 0.04 K/mm3 (0.00-0.23); BASOPHILS PERCENT AUTO 1 % (0-2); EOSINOPHILS ABSOLUTE AUTO 0.07 K/mm3 (0.00-0.68); EOSINOPHILS PERCENT AUTO 2 % (0-6); Hematocrit 32.2 % (37.0-53.0); Hemoglobin 11.0 g/dL (13.5-17.5); IMMATURE GRAN ABSOLUTE AUTO 0.04 K/mm3 (0.00-0.10); IMMATURE GRAN PERCENT AUTO 1 % (0-1); LYMPHOCYTES ABSOLUTE AUTO 0.91 K/mm3 (0.84-5.20); LYMPHOCYTES PERCENT AUTO 27 % (21-46); MONOCYTES ABSOLUTE AUTO 0.57 K/mm3 (0.16-1.47); MONOCYTES PERCENT AUTO 17 % (4-13); Mean Corpuscular HGB Conc 34.2 g/dL (31.5-36.5); Mean Corpuscular Volume 100 fL (80-100); NEUTROPHILS ABSOLUTE AUTO 1.74 K/mm3 (1.96-9.15); NEUTROPHILS PERCENT AUTO 52 % (41-73); NRBC ABSOLUTE 0.00 K/mm3 (0.00-0.02); NRBC Auto 0.0 /100 WBC (0.0-0.2); Platelet Count 81 K/mm3 (150-400); RDW Coefficient Variation 18.0 % (11.7-14.2); RDW Standard Deviation 66.2 fL (35.1-46.3)
[2025-02-27 06:10] LABS: Alanine Aminotransfer (ALT/SGP 42.0 U/L (12-78); Albumin, Blood 1.7 g/dL (3.4-5.0); Albumin/Globulin Ratio 0.4 (0.8-1.8); Anion Gap 7.0 mmol/L (3-11); Aspartate Aminotrans (AST/SGOT 153.0 U/L (12-37); Bilirubin, Total 3.7 mg/dL (0.1-1.0); Blood Urea Nitrogen 6.0 mg/dL (8-24); CO2, Blood 25.0 mmol/L (21-32); Calcium, Blood 7.6 mg/dL (8.5-10.1); Chloride, Blood 106.0 mmol/L (98-108); Creatinine, Blood 0.52 mg/dL (0.60-1.20); Globulin, Blood 4.3 g/dL (2.2-4.0); Glucose, Blood 103.0 mg/dL (70-99); Magnesium, Blood 1.9 mg/dL (1.6-2.4); Phosphorus, Blood 2.6 mg/dL (2.5-4.9); Potassium, Blood 3.6 mmol/L (3.5-5.5); Sodium, Blood 134.0 mmol/L (136-145); Total Protein, Blood 6.0 g/dL (6.4-8.2)
--- NOTE | 2025-02-27 06:26 | NUR ---
SHIFT SUMMARY PT A&Ox4 AND PLEASANT. NO ACUTE CHANGES. PT STILL C/O PAIN THAT IS ABOUT 8/10. MEDICATED PER EMAR. NO N/V AND TOLERATING PO INTAKE. IND IN ROOM. VSS. BED IN LOWEST POSITION AND CALL LIGHT IN REACH.
[2025-02-27 07:50] VITALS: BP 141/85
[2025-02-27 08:18] LABS: PETH 16:0/18:1 (POPETH) 1344 ng/mL
[2025-02-27] MEDS ORDERED: Polyethylene Glycol 3350 17 gm PO PRN (09:35)
[2025-02-27 09:45] LABS: ALPHA-1-ANTITRYPSIN 188 mg/dL (90-200)
[2025-02-27] MEDS ORDERED: Albuterol 2.5 MG/3 ML VIAL INH PRN (10:50)
[2025-02-27] MEDS ORDERED: Albuterol 2.5 MG/3 ML VIAL ONE (10:51)
[2025-02-27 13:39] LABS: CERULOPLASMIN 21 mg/dL (15-30)
[2025-02-27 14:03] LABS: HEPATITIS A ANTIBODY, IGM Negative (Negative); HEPATITIS C AB CIA INTERP Negative (Negative); HEPATITIS C ANTIBODY CIA INDEX 0.17 IV
[2025-02-27 15:11] VITALS: BP 148/82
--- NOTE | 2025-02-27 17:17 | NUR ---
SHIFT SUMMARY: PATIENT HAS HAD NO NEW CHANGES THIS SHIFT. PATIENT MEDICATED FOR R UPPER ABDOMINAL PAIN PER EMAR c MOD EFFECT. PATIENT RECEIVED BOWEL CARE PER ORDER AND REPORTS HAD LARGE BM THIS SHIFT. PATIENT LUNGS CONTINUES TO BE WHEEZY T/O TO AUSCULTATION, RECEIVED BX TX ADMINISTERED BY RT AND USES IS T/O THE DAY. PATIENT HAS GOOD APPETITE, CONTINENT OF BLADDER AND INDEPENDENT IN ROOM. VITAL SIGNS REVIEWED. BED IN LOWEST POSITION. CALL LIGHT IN REACH.
[2025-02-27 20:10] VITALS: BP 134/85
[2025-02-28 03:29] VITALS: BP 150/76
--- NOTE | 2025-02-28 04:09 | NUR ---
SHIFT SUMMARY: PT IS A0X4 AND IND IN ROOM. PT MEDICATED FOR RIGHT UPPER QUADRANT PAIN WITH SCHEDULED TYLENOL AND OXYCODONE Q4 ORDERED. BOWEL MEDS HELD PER PT REQUEST. NO ACUTE CHANGES THIS SHIFT.
[2025-02-28 05:21] LABS: BASOPHILS ABSOLUTE AUTO 0.03 K/mm3 (0.00-0.23); BASOPHILS PERCENT AUTO 1 % (0-2); EOSINOPHILS ABSOLUTE AUTO 0.06 K/mm3 (0.00-0.68); EOSINOPHILS PERCENT AUTO 2 % (0-6); Hematocrit 32.6 % (37.0-53.0); Hemoglobin 11.3 g/dL (13.5-17.5); IMMATURE GRAN ABSOLUTE AUTO 0.04 K/mm3 (0.00-0.10); IMMATURE GRAN PERCENT AUTO 1 % (0-1); LYMPHOCYTES ABSOLUTE AUTO 0.94 K/mm3 (0.84-5.20); LYMPHOCYTES PERCENT AUTO 26 % (21-46); MONOCYTES ABSOLUTE AUTO 0.65 K/mm3 (0.16-1.47); MONOCYTES PERCENT AUTO 18 % (4-13); Mean Corpuscular HGB Conc 34.7 g/dL (31.5-36.5); Mean Corpuscular Volume 100 fL (80-100); NEUTROPHILS ABSOLUTE AUTO 1.90 K/mm3 (1.96-9.15); NEUTROPHILS PERCENT AUTO 52 % (41-73); NRBC ABSOLUTE 0.00 K/mm3 (0.00-0.02); NRBC Auto 0.0 /100 WBC (0.0-0.2); Platelet Count 97 K/mm3 (150-400); RDW Coefficient Variation 18.3 % (11.7-14.2); RDW Standard Deviation 68.3 fL (35.1-46.3)
[2025-02-28 05:38] LABS: Alanine Aminotransfer (ALT/SGP 44.0 U/L (12-78); Albumin, Blood 1.8 g/dL (3.4-5.0); Albumin/Globulin Ratio 0.4 (0.8-1.8); Anion Gap 6.0 mmol/L (3-11); Aspartate Aminotrans (AST/SGOT 153.0 U/L (12-37); Bilirubin, Total 3.5 mg/dL (0.1-1.0); Blood Urea Nitrogen 5.0 mg/dL (8-24); CO2, Blood 26.0 mmol/L (21-32); Calcium, Blood 7.6 mg/dL (8.5-10.1); Chloride, Blood 107.0 mmol/L (98-108); Creatinine, Blood 0.47 mg/dL (0.60-1.20); Globulin, Blood 4.3 g/dL (2.2-4.0); Glucose, Blood 89.0 mg/dL (70-99); Magnesium, Blood 1.8 mg/dL (1.6-2.4); Phosphorus, Blood 2.5 mg/dL (2.5-4.9); Potassium, Blood 3.7 mmol/L (3.5-5.5); Sodium, Blood 135.0 mmol/L (136-145); Total Protein, Blood 6.1 g/dL (6.4-8.2)
[2025-02-28 07:21] VITALS: BP 128/88
[2025-02-28] MEDS ORDERED: SENN187 PO (11:20)
[2025-02-28] MEDS ORDERED: MIRALAX17 GM PO (11:20)
[2025-02-28] MEDS ORDERED: OXYC10TA19 PO (11:20)
[2025-02-28] MEDS ORDERED: SPIR25 PO (11:21)
--- NOTE | 2025-02-28 12:34 | NUR ---
DISCHARGE NOTE PATIENT EDUCATED ABOUT DISCHARGE, PLANS, AND FOLLOW UP ORDERS. PATIENT IV D/C'D PRIOR TO LEAVING. PATIENT DECLINED A WHEEL CHAIR FOR EXIT, PLANS TO WALK. HARD SCRIPT AND DOC NOTE COPIED AND GIVEN TO PATIENT. PATIENT DENIES ANY FURTHER QUESTIONS.
== END 2025-02-28 12:39 | disposition home or self-care (01) | DRG 438 ==
LOC: ER 12:33 → MEDS 12:34
PROVIDERS: Student in an Organized Health Care Education/Training Program; ADMIT Hospitalist
PROC: 3E02340 Introduction of Influenza Vaccine into Muscle, Percutaneous Approach (ICD-10-PCS; principal; 2025-02-23)
PROC: 3E03329 Introduction of Other Anti-infective into Peripheral Vein, Percutaneous Approach (ICD-10-PCS; principal; 2025-02-23)
PROC: 0W9G3ZX Drainage of Peritoneal Cavity, Percutaneous Approach, Diagnostic (ICD-10-PCS; principal; 2025-02-23)
DX: K85.20 Alcohol induced acute pancreatitis without necrosis or infection (principal); K65.2 Spontaneous bacterial peritonitis; I85.10 Secondary esophageal varices without bleeding; M54.50 Low back pain, unspecified; G89.29 Other chronic pain; K70.31 Alcoholic cirrhosis of liver with ascites; I10 Essential (primary) hypertension; E80.6 Other disorders of bilirubin metabolism; R74.8 Abnormal levels of other serum enzymes; E87.6 Hypokalemia; E83.42 Hypomagnesemia; E83.39 Other disorders of phosphorus metabolism; K21.9 Gastro-esophageal reflux disease without esophagitis; Z79.899 Other long term (current) drug therapy; Z91.030 Bee allergy status; Z79.01 Long term (current) use of anticoagulants; Z87.19 Personal history of other diseases of the digestive system; Z87.442 Personal history of urinary calculi; Z87.891 Personal history of nicotine dependence; Z86.73 Personal history of transient ischemic attack (TIA), and cerebral infarction without residual deficits
CPT/HCPCS: 36415; 71045; 74177; 74181; 76705; 80048; 80053; 80061; 80074; 81001; 82103; 82248; 82390; 82728; 82977; 83690; 83735; 84100; 85025; 85610; 85730; 87040; 93005; 93010; 93975; 94640; 94664; 96365-59; 96375; 99285-25; A9270; G0378; G0480; J0696; J1644; J1650; J1938; J2270; J2405; J2470; J3010; J3475; J3480; J7050; J7060; J7120; Q9967

== ENCOUNTER 2025-03-21 11:53 | Emergency (ER) | payer OTHER ==
[~2025-03-21] VITALS: Ht 172.7 cm; Wt 117.9 kg
[~2025-03-21 11:53] MED LIST changes: +MIRALAX17 GM PO; +OXYC10TA19 PO; +PANT20 PO; +SENN187 PO; +SPIR25 PO; +Zestril30 MG PO
[2025-03-21 12:01] VITALS: BP 145/87
[2025-03-21 14:48] LABS: Source, Urine Clean Catch
[2025-03-21 14:58] LABS: Color, Urine Amber (P-Yellow); Glucose Qualitative, Urine Neg (Neg); Ketones, Urine 1+ (Neg); Leukocyte Esterase, Urine 2+ (Neg); Protein, Urine 2+ (Neg); Specific Gravity, Urine 1.010 (1.003-1.022); Urobilinogen, Urine 4+ (Normal)
[2025-03-21 15:47] LABS: Bilirubin, Urine 3+ (Neg)
[2025-03-21 15:48] LABS: Red Blood Cells, Urine 25-50 /hpf (0-2)
[2025-03-21] MEDS ORDERED: LEVFLO500 PO (16:14)
[2025-03-21] MEDS ORDERED: Percocet 5-3251 EACH PO (16:14)
== END 2025-03-21 16:21 | disposition home or self-care (01) ==
LOC: ER 11:53
PROVIDERS: Student in an Organized Health Care Education/Training Program
DX: N45.1 Epididymitis (principal); I86.1 Scrotal varices; R00.0 Tachycardia, unspecified; I10 Essential (primary) hypertension; K70.30 Alcoholic cirrhosis of liver without ascites; Z87.891 Personal history of nicotine dependence; Z91.030 Bee allergy status; Z79.899 Other long term (current) drug therapy
CPT/HCPCS: 76870; 81001; 87077; 87086; 87186; 99284-25; A9270

== ENCOUNTER 2025-04-18 09:38 | Inpatient (IN) | payer OTHER ==
[~2025-04-18] VITALS: Ht 177.8 cm; Wt 120.5 kg
[~2025-04-18 09:38] MED LIST changes: +LEVFLO500 PO; +Percocet 5-3251 EACH PO
[2025-04-18 10:25] LABS: BASOPHILS ABSOLUTE AUTO 0.06 K/mm3 (0.00-0.23); BASOPHILS PERCENT AUTO 1 % (0-2); EOSINOPHILS ABSOLUTE AUTO 0.09 K/mm3 (0.00-0.68); EOSINOPHILS PERCENT AUTO 1 % (0-6); Hematocrit 35.2 % (37.0-53.0); Hemoglobin 13.0 g/dL (13.5-17.5); IMMATURE GRAN ABSOLUTE AUTO 0.23 K/mm3 (0.00-0.10); IMMATURE GRAN PERCENT AUTO 2 % (0-1); LYMPHOCYTES ABSOLUTE AUTO 1.62 K/mm3 (0.84-5.20); LYMPHOCYTES PERCENT AUTO 15 % (21-46); MONOCYTES ABSOLUTE AUTO 1.29 K/mm3 (0.16-1.47); MONOCYTES PERCENT AUTO 12 % (4-13); Mean Corpuscular HGB Conc 36.9 g/dL (31.5-36.5); Mean Corpuscular Volume 95 fL (80-100); NEUTROPHILS ABSOLUTE AUTO 7.55 K/mm3 (1.96-9.15); NEUTROPHILS PERCENT AUTO 70 % (41-73); NRBC ABSOLUTE 0.00 K/mm3 (0.00-0.02); NRBC Auto 0.0 /100 WBC (0.0-0.2); Platelet Count 117 K/mm3 (150-400); RDW Coefficient Variation 16.3 % (11.7-14.2); RDW Standard Deviation 55.4 fL (35.1-46.3)
[2025-04-18 10:30] LABS: Source, Urine Clean Catch
[2025-04-18 10:35] LABS: Color, Urine Amber (P-Yellow); Glucose Qualitative, Urine Neg (Neg); Ketones, Urine 1+ (Neg); Leukocyte Esterase, Urine 2+ (Neg); Protein, Urine 2+ (Neg); Specific Gravity, Urine 1.015 (1.003-1.022); Urobilinogen, Urine 3+ (Normal)
[2025-04-18 10:46] LABS: Prothrombin Time Results 30.0 Sec (9.7-11.5)
[2025-04-18 10:48] LABS: Alanine Aminotransfer (ALT/SGP 87 U/L (12-78); Albumin, Blood 1.6 g/dL (3.4-5.0); Albumin/Globulin Ratio 0.3 (0.8-1.8); Anion Gap 15 mmol/L (3-11); Aspartate Aminotrans (AST/SGOT 355 U/L (12-37); Bilirubin, Total 14.8 mg/dL (0.1-1.0); Blood Urea Nitrogen 33 mg/dL (8-24); CO2, Blood 18 mmol/L (21-32); Calcium, Blood 6.6 mg/dL (8.5-10.1); Chloride, Blood 94 mmol/L (98-108); Creatinine, Blood 2.40 mg/dL (0.60-1.20); Ethanol (Alcohol), Blood, Med <3 mg/dL; Globulin, Blood 5.1 g/dL (2.2-4.0); Glucose, Blood 89 mg/dL (70-99); Potassium, Blood 2.9 mmol/L (3.5-5.5); Sodium, Blood 124 mmol/L (136-145); Thyroid Stimulating Hormone 1.660 uIU/mL (0.360-4.800); Total Protein, Blood 6.7 g/dL (6.4-8.2)
[2025-04-18] MEDS ORDERED: Lactulose 200 GM/300 ML Enema 300ML BTL PR ONE (10:55)
[2025-04-18 11:00] LABS: Bilirubin, Urine 3+ (Neg)
[2025-04-18] MEDS ORDERED: Magnesium Sulf 2 GM/Water 50ML 50 ML IV ONE (11:00)
[2025-04-18] MEDS ORDERED: Albumin (Human) 25gm/100ml 100 ML IV SCH ×2 (11:00→21:00)
[2025-04-18 11:18] LABS: U Amphetamine Screen Not Detected; U Barbiturate Screen Not Detected; U Benzodiazapine Screen Not Detected; U Buprenorphine Screen Not Detected; U Cannabinoids Screen Not Detected; U Cocaine Screen Not Detected; U Methadone Screen Not Detected; U Methamphetamine Screen Not Detected; U Opiates Screen Not Detected; U Oxycodone Screen Not Detected; U Phencyclidine Screen Not Detected
[2025-04-18 11:25] LABS: pH Blood Venous 7.44 (7.34-7.37)
[2025-04-18] MEDS ORDERED: LORazepam 2 MG/ML 1ML Injection IV PRN (14:30)
[2025-04-18] MEDS ORDERED: FLU VACC TS2025-26(6MOS UP)/PF 45 MCG/0.5 ML SYRINGE IM SCH (14:30)
[2025-04-18] MEDS ORDERED: Octreotide Acetate 500 MCG in NS 250 ML IV SCH (14:35)
[2025-04-18] MEDS ORDERED: CefTRIAXone Sodium 1,000 MG in NS 100 ML IV SCH (15:00)
--- NOTE | 2025-04-18 16:41 | NUR ---
PALLIATIVE CARE CONSULT: CONSULT RECEIVED FOR END STAGE DISEASE. REVIEWED MEDICAL RECORD. NO POLST/AD ON FILE OR WITH OPR. PT CURRENTLY HAS AMS. HERE FOR HEPATIC ENCEPHALOPATHY. REVIEWED H&P. CALLED DR. GONZALEZ FOR CLARIFICATION. PER DR. GONZALEZ GOAL IS TO IMPROVE MENTATION BUT AVOID RESTRAINTS IF PT BECOMES AGITATED/AGGRESSIVE. IF PT SYMPTOMS CANNOT BE MANAGED WITH CURRENT MEDICATIONS THEN WILL START COMFORT CARE. IS AGREEABLE TO THIS PLAN OF CARE. DR. GONZALEZ ALREADY DISCUSSED HOSPICE SERVICES AND IS TO TALK TO CHILDREN ABOUT HOSPICE AND WILL RE-EVALUATE THIS OPTION TOMORROW. CALLED DESCRIPTIVE CATALOG LIBRARIAN. PT ASSIGNED TO ROOM 343 WHICH IS NEAREST TO DESCRIPTIVE CATALOG LIBRARIAN DESK. DISCUSSED CONCERNS AND PLAN OF CARE. SHE STATED SHE WOULD PASS ONTO NOC DESCRIPTIVE CATALOG LIBRARIAN. CALLED ASSIGNED RN AND GAVE HER UPDATE ON POC.
[2025-04-18] MEDS ORDERED: Lactulose 200 GM/300 ML Enema 300ML BTL PR SCH (18:00)
[2025-04-18 18:09] VITALS: BP 138/70
--- NOTE | 2025-04-18 18:30 | NUR ---
PT ADMITTED TO UNIT FROM ER. PT TRANSFERED FROM [facility] TO HOSPITAL BED USING SLIDE SHEET. PT TOLERATED TRASNFER WELL. PT AWAKE BUT WITHDRAWN/LETHARGIC UPON ARRIVAL TO UNIT. PT DENIES PAIN. PT ABLE TO STATE HIS NAME, WHERE HE IS, AND CURRENT YEAR. RECTAL TUBE PATENT AND DRAINING LIGHT CALLES LIQUIDY STOOL WITH SOME RED SPECS NOTED. YING PATENT AND DRAINING DARK ORANGE/BROWN URINE. NO SKIN ISSUES NOTED - SCATTERED BRUISING, ONE SCAB NOTED TO LEFT INNER ANKLE. BED ALARM ON DUE TO LETHARGY AND RECENT HX OF CONFUSION. NPO AT THIS TIME. ORDERS OBTAINED FOR Q6H CBG AND D50 1.5 ML Q6H IV PRN FOR CBG LESS THAN 90. ORDER READ BACK TO PROVIDER AND VERIFIED VIA TELEPHONE. PT CURRENTLY SLEEPING AND APPEARS TO BE IN NO DISTRESS. BED IN LOWEST POSITION, CALL LIGHT WITHIN REACH, AND BED ALARM ON. NO FAMILY AT BEDSIDE AT THIS TIME. PER PALLIATIVE CARE AND PROVIDER ATTEMPT TO NOT GIVE LORAZEPAM BUT IF NECESSARY ADMINISTER TO KEEP PT OUT OF RESTRAINTS. PT FAMILY AND PROVIDER HOPEFUL PT AMS WILL IMPROVE.
[2025-04-18 19:48] VITALS: BP 144/80
[2025-04-18] MEDS ORDERED: D5W-1/2NS 1,000 ML IV SCH (21:10)
--- NOTE | 2025-04-18 21:30 | NUR ---
04/18/252099 Rabia Joel ( day shift RN) called and asked me to change an order she had written. D50 amp 1.5ml order was was Dc'd. Dr. Bell was notified of blood sugar of 66. Pt was given 1 amp of D50 given and IV fluids D5 1/2ns started at 75cc x 1 bag. shift supervisor RN Lenora was notified. Labs for am ordered.
[2025-04-18] MEDS ORDERED: NS 250 ML IV PRN (22:30)
[2025-04-19] MEDS ORDERED: Pantoprazole Sodium 40 MG Injection IV SCH (06:00)
[2025-04-19 06:40] LABS: BASOPHILS ABSOLUTE AUTO 0.03 K/mm3 (0.00-0.23); BASOPHILS PERCENT AUTO 0 % (0-2); EOSINOPHILS ABSOLUTE AUTO 0.09 K/mm3 (0.00-0.68); EOSINOPHILS PERCENT AUTO 1 % (0-6); Hematocrit 31.1 % (37.0-53.0); Hemoglobin 11.4 g/dL (13.5-17.5); IMMATURE GRAN ABSOLUTE AUTO 0.16 K/mm3 (0.00-0.10); IMMATURE GRAN PERCENT AUTO 2 % (0-1); LYMPHOCYTES ABSOLUTE AUTO 1.06 K/mm3 (0.84-5.20); LYMPHOCYTES PERCENT AUTO 11 % (21-46); MONOCYTES ABSOLUTE AUTO 1.07 K/mm3 (0.16-1.47); MONOCYTES PERCENT AUTO 11 % (4-13); Mean Corpuscular HGB Conc 36.7 g/dL (31.5-36.5); Mean Corpuscular Volume 97 fL (80-100); NEUTROPHILS ABSOLUTE AUTO 7.06 K/mm3 (1.96-9.15); NEUTROPHILS PERCENT AUTO 75 % (41-73); NRBC ABSOLUTE 0.00 K/mm3 (0.00-0.02); NRBC Auto 0.0 /100 WBC (0.0-0.2); Platelet Count 105 K/mm3 (150-400); RDW Coefficient Variation 16.7 % (11.7-14.2); RDW Standard Deviation 57.4 fL (35.1-46.3)
--- NOTE | 2025-04-19 06:46 | NUR ---
SHIFT SUMMARY; AT THE BEGINNING OF THIS SHIFT PT A/OX2 (SELF/PERSON), HOWEVER A FEW HOURS AFTER LACTOLOSE ADMINISTRATION, PT A/OX4- OBSERVED REQUESTING TO ASSIST HIM CHOOSE A MOVIE TO WATCH ON THE TV, ASKING FOR MORE TO EAT, AND REQUESTED PLAYING CARDS TO KEEP HIM OCCUPIED. PT S BLOOD SUGAR LOW AT 66 AT APPROX 2000. CALL PLACED TO DR. PALM TO REQUEST IV BAG OF D5 AND TO CHANGE PT S DIET TO CLEAR LIQUIDS. PT S BLOOD SUGAR REEVALUATED AND HAS INCREASED. PT TOLERATING CLEAR LIQUIDS WELL AND IS REQUESTING SOLID FOODS. CALL PLACED TO DR. ROSS TO ADVANCE DIET TO REGULAR. PT PROVIDED 2 SANDWICHES AND CHEESE SNACKS. PT TOLERATING WELL. VSS. BED IN LOWEST POSITION AND CALL LIGHT WITHIN REACH.
[2025-04-19 07:17] LABS: Alanine Aminotransfer (ALT/SGP 85.0 U/L (12-78); Albumin, Blood 2.3 g/dL (3.4-5.0); Albumin/Globulin Ratio 0.6 (0.8-1.8); Anion Gap 15.0 mmol/L (3-11); Aspartate Aminotrans (AST/SGOT 335.0 U/L (12-37); Bilirubin, Total 18.8 mg/dL (0.1-1.0); Blood Urea Nitrogen 35.0 mg/dL (8-24); CO2, Blood 17.0 mmol/L (21-32); Calcium, Blood 7.0 mg/dL (8.5-10.1); Chloride, Blood 99.0 mmol/L (98-108); Creatinine, Blood 1.61 mg/dL (0.60-1.20); Globulin, Blood 3.7 g/dL (2.2-4.0); Glucose, Blood 137.0 mg/dL (70-99); Potassium, Blood 2.8 mmol/L (3.5-5.5); Sodium, Blood 128.0 mmol/L (136-145); Total Protein, Blood 6.0 g/dL (6.4-8.2)
[2025-04-19 07:26] VITALS: BP 129/69
[2025-04-19] MEDS ORDERED: Potassium Chl 20MEQ/Water100ML 100 ML IV SCH (09:00)
[2025-04-19] MEDS ORDERED: FentaNYL Citrate 50 MCG/ML 2 ML Injection IV PRN (09:55)
[2025-04-19 13:13] VITALS: BP 146/84
--- NOTE | 2025-04-19 14:30 | NUR ---
PALLIATIVE CARE VISIT: 1200 MET WITH , PT SON AND PT IN HIS ROOM. PT IS AWAKE, A/O X4 AND ABLE TO HAVE MEANINGFUL CONVERSATION. PT IS DECISIONAL. WE DISCUSSED PT MELS SCORE. PROGNOSIS. RECOMMENDED HOSPICE SERVICES FOR SUPPORT. THEY WERE RECEPTIVE TO HOSPICE. EDUCATED THEM ON WHAT HOSPICE SERVICES PROVIDE. THEY WANTED SOME TIME TO DISCUSS AMONGST THEMSELVES. ROUNDED AGAIN AT 1430. PT WAS SLEEPING IN HIS ROOM AND WAS NOT PRESENT. CALLED BILL TO FIND OUT WHAT OUTCOME OF DECISION WAS. BILL STATED THEY ARE AGREEABLE TO OPTIMIZING HEALTH AND DC WITH HOSPICE SERVICES. WAS UNABLE TO TALK ABOUT CODE STATUS. PT HAD PRIOR DISCUSSION WITH DR. GONZALEZ AND HE CHOSE FULL CODE. WILL UPDATE CODE STATUS TO INDICATE THIS. CALLED DR. GONZALEZ AND SHE AGREED WITH POC ABOVE. CODE STATUS CHANGED TO FULL CODE. UPDATED PRIMARY RN.
[2025-04-19] MEDS ORDERED: Ondansetron HCl 2 MG / ML 2ML Vial IV PRN (15:10)
[2025-04-19 15:54] VITALS: BP 145/77
--- NOTE | 2025-04-19 16:40 | NUR ---
SHIFT SUMMARY A/Ox4 WHEN AWAKE. PT REMAINS LETHARGIC AND WITHDRAWN AT TIMES. PT NOW FULL CODE STATUS. DNR BRACELET REMOVED FROM PT DOOR. 1 LARGE LOOSE BM SO FAR THIS SHIFT. RECTAL TUBE FELL OUT - DID NOT REPLACE PT DID NOT WANT RECTAL TUBE IN AT THIS TIME. INSTRUCTED PT TO NOTIFY STAFF IF NEEDING TO USE BEDPAN. YING REMAINS IN PLACE - PATENT AND DRAINING DARK ORANGE COLORED URINE. CBG DC'D. FLUIDS DC'D. REPOSITIONING Q2H. PAIN TO ABD - NEW ORDERS FOR PAIN MANAGEMENT EFFECTIVE. PT CURRENTLY RESTING IN BED WITH BED ALARM ON, BED IN LOWEST POSITION AND CALL LIGHT IN REACH.
[2025-04-19 19:18] VITALS: BP 117/79
[2025-04-20 04:36] VITALS: BP 138/86
[2025-04-20 05:54] LABS: BASOPHILS ABSOLUTE AUTO 0.03 K/mm3 (0.00-0.23); BASOPHILS PERCENT AUTO 1 % (0-2); EOSINOPHILS ABSOLUTE AUTO 0.03 K/mm3 (0.00-0.68); EOSINOPHILS PERCENT AUTO 1 % (0-6); Hematocrit 31.0 % (37.0-53.0); Hemoglobin 11.3 g/dL (13.5-17.5); IMMATURE GRAN ABSOLUTE AUTO 0.05 K/mm3 (0.00-0.10); IMMATURE GRAN PERCENT AUTO 1 % (0-1); LYMPHOCYTES ABSOLUTE AUTO 0.71 K/mm3 (0.84-5.20); LYMPHOCYTES PERCENT AUTO 12 % (21-46); MONOCYTES ABSOLUTE AUTO 0.67 K/mm3 (0.16-1.47); MONOCYTES PERCENT AUTO 11 % (4-13); Mean Corpuscular HGB Conc 36.5 g/dL (31.5-36.5); Mean Corpuscular Volume 98 fL (80-100); NEUTROPHILS ABSOLUTE AUTO 4.51 K/mm3 (1.96-9.15); NEUTROPHILS PERCENT AUTO 75 % (41-73); NRBC ABSOLUTE 0.00 K/mm3 (0.00-0.02); NRBC Auto 0.0 /100 WBC (0.0-0.2); Platelet Count 81 K/mm3 (150-400); RDW Coefficient Variation 16.9 % (11.7-14.2); RDW Standard Deviation 59.4 fL (35.1-46.3)
[2025-04-20 06:45] LABS: Alanine Aminotransfer (ALT/SGP 95.0 U/L (12-78); Albumin, Blood 2.7 g/dL (3.4-5.0); Albumin/Globulin Ratio 0.7 (0.8-1.8); Anion Gap 10.0 mmol/L (3-11); Aspartate Aminotrans (AST/SGOT 327.0 U/L (12-37); Bilirubin, Total 24.0 mg/dL (0.1-1.0); Blood Urea Nitrogen 21.0 mg/dL (8-24); CO2, Blood 19.0 mmol/L (21-32); Calcium, Blood 7.7 mg/dL (8.5-10.1); Chloride, Blood 108.0 mmol/L (98-108); Creatinine, Blood 0.68 mg/dL (0.60-1.20); Globulin, Blood 3.8 g/dL (2.2-4.0); Glucose, Blood 145.0 mg/dL (70-99); Potassium, Blood 3.0 mmol/L (3.5-5.5); Sodium, Blood 134.0 mmol/L (136-145); Total Protein, Blood 6.5 g/dL (6.4-8.2)
[2025-04-20 07:34] VITALS: BP 152/85
--- NOTE | 2025-04-20 07:41 | NUR ---
SHIFT SUMMARY; PT A/OX4 AND ON BEDREST. PT MEDICATED PER EMAR. AFTER LACTALOSE PO ADMINISTRATION, SHORTLY AFTERWARDS PT OBSERVED VOMITING CLEAR EMESIS. PT TURNED TO HIS SIDE AND GIVEN AN EMESIS BAG. PT HAS HAD 2 MODERATE AMOUNTS OF LIQUID YELLOW STOOL. DUE TO INCONTINANCE OF STOOL, BED CHANGE PERFORMED. PT'S URINE APPEARS DARK ORANGE/YELLOW COLOR. PT HAS 6/10 PAIN ON THE 0-10 PAIN SCALE IN ABD. PT MEDICATED PER EMAR. VSS. BED IN LOWEST POSITION AND CALL LIGHT WITHIN REACH.
[2025-04-20 14:54] LABS: Prothrombin Time Results 25.6 Sec (9.7-11.5)
[2025-04-20 16:29] VITALS: BP 136/80
--- NOTE | 2025-04-20 18:03 | NUR ---
SHIFT SUMMARY PT A&OX4, VSS, RA, NON-TELE, BED BOUND AT THIS TIME. LACTULOSE GIVEN WITH GOOD RESULTS, MULTIPLE LOOSE BM IN BRIEF OR BEDPAN. YING IN PLACE DRAINING TEA COLORED URINE. PT C/O PAIN AT TIP OF PENIS, CHANGED LOCATION OF STATLOCK FOR YING. PT ABD PAIN MANAGED WITH PRN FENTANYL AND OXYCODONE. FAMILY AT BEDSIDE. PARACENTESIS ORDERED BUT UNABLE TO DO D/T INR>2.0 DESPITE 10 MG VIT K INFUSION. PLAN TO DC HOME TOMORROW ON HOSPICE. PT ABLE TO MAKE NEEDS KNOWN, CALL LIGHT IN REACH.
[2025-04-20 19:47] VITALS: BP 143/79
[2025-04-21] VITALS (7 sets, daily range): BP systolic 134–162; BP diastolic 83–98
--- NOTE | 2025-04-21 06:14 | NUR ---
PLASMA PROCESSOR SUMMARY PT A&OX4, VSS. ABLE TO COMMUNCIATE NEEDS APPROPRIATELY. PT HAS BEEN ASLEEP ON AND OFF THIS SHIFT. CHEST RISE/RESPIRATIONS NOTED. MULTIPLE BOWEL MOVEMENTS THIS SHIFT. PT RECEIVING LACTULOSE AND IS INCONT OF BM'S. REGULAR CHANGING NEEDED. PT CALLS APPROPRIATELY FOR ASSISTANCE. YING REMAINS IN PLACE. DRAINING TEA COLORED URINE TO GRAVITY. FREE OF KINKS/OBSTRUCTIONS. FENTANYL ADMIN X 1 W/ GOOD EFFECT. BED RAILS UP X 2, BED IN LOWEST POSITION, BED WHEELS LOCKED, PERSONAL BELONGINGS AND CALL LIGHT WITHIN REACH FOR SAFETY.
[2025-04-21 10:01] LABS: Prothrombin Time Results 25.3 Sec (9.7-11.5)
[2025-04-21 10:31] LABS: Alanine Aminotransfer (ALT/SGP 94.0 U/L (12-78); Albumin, Blood 2.9 g/dL (3.4-5.0); Albumin/Globulin Ratio 0.8 (0.8-1.8); Anion Gap 7.0 mmol/L (3-11); Aspartate Aminotrans (AST/SGOT 273.0 U/L (12-37); Bilirubin, Total 27.8 mg/dL (0.1-1.0); Blood Urea Nitrogen 13.0 mg/dL (8-24); CO2, Blood 21.0 mmol/L (21-32); Calcium, Blood 7.9 mg/dL (8.5-10.1); Chloride, Blood 108.0 mmol/L (98-108); Creatinine, Blood 0.5 mg/dL (0.60-1.20); Globulin, Blood 3.5 g/dL (2.2-4.0); Glucose, Blood 158.0 mg/dL (70-99); Potassium, Blood 3.4 mmol/L (3.5-5.5); Sodium, Blood 133.0 mmol/L (136-145); Total Protein, Blood 6.4 g/dL (6.4-8.2)
--- NOTE | 2025-04-21 20:07 | NUR ---
SHIFT SUMMARY- PT ALERT AND ORIENTED, HE WAS REFUSING LACTULOSE THIS AM. HE HAD HIS FULL DOSE THIS EVENING. PAIN WAS WELL MANAGED WITH THE PO OXY TODAY. HE HAD A SURGICAL CONSULT TODAY FOR A PLUREX DRAIN PLACEMENT. PT IS TO BE NPO AT MIDNIGHT, FOR SURGERY PLANNED FOR TOMORROW AFTERNOON. HIS FAMILY IS AWARE. PT IS VERY YELLOW AND HIS BILIRUBEN WAS CALLED A CRITICAL VALUE. THE PLAN IS FOR DC ON HOSPICE ONCE DRAIN IS PLACED AND PT IS STABLE FOR DISCHARGE.
[2025-04-22 03:49] VITALS: BP 145/87
[2025-04-22 05:47] LABS: Prothrombin Time Results 24.8 Sec (9.7-11.5)
--- NOTE | 2025-04-22 05:47 | NUR ---
SHIFT SUMMARY: Pt is admitted for hepatic encephalopathy and is a full code. Is alert and able to make needs known. ADLs have been SBA but did not get out of bed. Pain has been managed with PRN medications. Folly in place and draining clear yellow urine.
[2025-04-22 07:27] VITALS: BP 146/84
[2025-04-22 08:12] LABS: Hematocrit 30.8 % (37.0-53.0); Hemoglobin 10.7 g/dL (13.5-17.5); Mean Corpuscular HGB Conc 34.7 g/dL (31.5-36.5); Mean Corpuscular Volume 102 fL (80-100); NRBC ABSOLUTE 0.00 K/mm3 (0.00-0.02); NRBC Auto 0.0 /100 WBC (0.0-0.2); Platelet Count 93 K/mm3 (150-400); RDW Coefficient Variation 17.9 % (11.7-14.2); RDW Standard Deviation 65.7 fL (35.1-46.3)
--- NOTE | 2025-04-22 15:28 | NUR ---
DR GONZALEZ CAME TO SEE TH PE- THE PLAN IS FOR THE PT TO DC HOME ON HOSPICE AFTER PLUREX DRAIN PLACEMENT, THAT WAS POSTPONED BY GEN SURG TODAY DUE TO SCHEDULING, DR GONZALEZ IS AWARE. PT TO BE NPO AT MIDNIGHT FOR PROCEDURE TOMORROW. PT DID NOT WANT TO TAKE LACTULOSE HE HAD MULTIPLE STOOLS LAST NIGHT. DR GONZALEZ SAID TO CHANGE TO ONE DOSE PER DAY WITH A PRN DOSE FOR HIM TO TAKE IF HE HAS NOT HAD THREE STOOLS THAT DAY. HE IS ENCOURAGED TO TAKE THE DOSE IN THE EARLY AFTERNOON TO PREVENT NIGHT TIME STOOLS. ALBUMIN DC'D WELL. PT RECIEVED ANOTHER 10 MG OF PO VITAMIN K.
[2025-04-22 17:17] VITALS: BP 141/83
--- NOTE | 2025-04-22 18:37 | NUR ---
SHIFT SUMMARY- PT HAS HAD THREE STOOLS TODAY, HE DID NOT HAVE ANY LACTULOSE TODAY, ORDERS CHANGED IN THE EMAR. PT TO BE NPO AT MIDNIGHT FOR PLUREX DRAIN PLACEMENT TOMORROW. PT NO LONGER HAS A BEDREST ORDER AND WAS ABLE TO GET OOB AND TO THE BATHROOM FOR A SHOWER AND STOOL TODAY. PT IS CURRENTLY IN BED EATING NO S&S OF DISTRESS, FAMILY AT THE BEDSIDE. WILL PASS ON TO NIGHT RN IN BEDSIDE REPORT.
[2025-04-22 19:38] VITALS: BP 133/74
[2025-04-23] VITALS (15 sets, daily range): BP systolic 125–145; BP diastolic 72–93
[2025-04-23 05:48] LABS: Prothrombin Time Results 23.8 Sec (9.7-11.5)
[2025-04-23] MEDS ORDERED: Lidocaine HCL 1% 10 ML MDV ONE (13:50)
--- NOTE | 2025-04-23 14:00 | NUR ---
JOSE LATE R/T PT RECEIVING BLOOD PRODUCTS. GAVE ABX TO DAY MACHINE HEEL SEAT FITTER.
[2025-04-23] MEDS ORDERED: Bupivacaine 0.25% Epi 1:200000 30 ML Vial ONE (14:52)
[2025-04-23] MEDS ORDERED: FentaNYL Citrate 50 MCG/ML 2 ML Injection ONE (14:56)
--- NOTE | 2025-04-23 15:18 | NUR ---
History, Chart, Medications and Allergies reviewed before start of procedure. Pre-Op teaching done. Pt verbalizes understanding. Patient confirms NPO status and agrees with scheduled surgery.
[2025-04-23] MEDS ORDERED: FentaNYL Citrate 50 MCG/ML 2 ML Injection IV PRN ×3 (15:40→15:45)
[2025-04-23] MEDS ORDERED: Ondansetron HCl 2 MG / ML 2ML Vial IV PRN (15:45)
[2025-04-23] MEDS ORDERED: HYDROmorphone HCl/Pf 1MG SYR IV PRN (15:45)
[2025-04-23] MEDS ORDERED: Albumin (Human) 25gm/100ml 100 ML IV ONE (17:25)
--- NOTE | 2025-04-23 18:20 | NUR ---
PT PLEASANT COOP TODAY. HAS PLEUREX DRAIN PLACED THIS AFTERNOON. 3L FLUID REMOVED FOR PROCEDURE. ORDERED ALBUMIN AND IT WAS ADMINISTERED. PT AWAKE, EATING DENIES PAIN. FAMILY IN ROOM THIS DEANA. EXPECTING HOME ON HOSPICE TOMORROW AM. CARE MANAGEMENT STATES EXTRA PLEUREX DRAIN MATERIALS COMING TO PT HOME IN AM TOMORROW. PT CONTINUES TO BE QUITE JAUNDICED. STATES FLUID OFF MAKES EASIER TO BREATHE. OFF O2. SATS WNL. NO OTHER NEW CONCERNS NOTED. BED IN LOW POSITION, CALL LITE IN REACH, CALLS APPROP
[2025-04-24 04:37] VITALS: BP 149/87
--- NOTE | 2025-04-24 06:21 | NUR ---
SHIFT SUMMARY PT A&OX4 AND ANSWERS QUESTIONS APPROPRIATELY. PT IS QUIET AND RESERVED BUT FOLLOWS DIRECTIONS OPPROPRIATELY. PT VSS, NO COMPLAINTS OF CP/PRESSURE OR SOB. YING CATHETER IN PLACE AND DRAINING TO GRAVITY. CATH CARE PERFORMED AND LIDOCAINE APPLIED TO MEATUS PER EMAR. NO ACUTE EVENTS AT THIS TIME. PT SPENT MOST OF SHIFT IN BED WITH EYES CLOSED AND RESPIRATIONS EVEN AND UNLABORED. PT LEFT IN A POSITION OF SAFETY WITH FALL PRECAUTIONS IN PLACE AND CALL LIGHT IN REACH. POSSIBLE DISCHARGE W/ HOSPICE IN AM
[2025-04-24] MEDS ORDERED: LACT10SY PO (06:35)
[2025-04-24] MEDS ORDERED: SPIR50 PO (06:35)
[2025-04-24] MEDS ORDERED: LORA.5 PO (06:38)
[2025-04-24] MEDS ORDERED: OXAYDO5 M1 PO (06:40)
[2025-04-24 07:29] VITALS: BP 138/77
--- NOTE | 2025-04-24 11:29 | NUR ---
DISCHARGE NOTE DISCHARGE INSTRUCTIONS AND PLANS REVIEWED. MEDICATION AND HOSPICE CARE REVIEWED WITH PATIENT. PATIENT STATES IS BRINING CLOTHES TO CHANGE INTO. PATIENT DENIES NEEDS. PATIENT WHEELED OUT BY MEDICAL STAFF TO PERSONAL VEHICLE.
== END 2025-04-24 10:16 | disposition hospice, home (50) | DRG 432 ==
LOC: ER 09:38 → MEDS 14:28
PROVIDERS: Emergency Medicine; Surgery; ADMIT Internal Medicine
PROC: 30233J1 Transfusion of Nonautologous Serum Albumin into Peripheral Vein, Percutaneous Approach (ICD-10-PCS; principal; 2025-04-18)
PROC: 3E03329 Introduction of Other Anti-infective into Peripheral Vein, Percutaneous Approach (ICD-10-PCS; 2025-04-18)
PROC: 0W9G30Z Drainage of Peritoneal Cavity with Drainage Device, Percutaneous Approach (ICD-10-PCS; 2025-04-23)
DX: K70.31 Alcoholic cirrhosis of liver with ascites (principal); K72.00 Acute and subacute hepatic failure without coma; K76.7 Hepatorenal syndrome; N17.9 Acute kidney failure, unspecified; E87.1 Hypo-osmolality and hyponatremia; E87.20 Acidosis, unspecified; D68.9 Coagulation defect, unspecified; N39.0 Urinary tract infection, site not specified; K76.82 Hepatic encephalopathy; Z66 Do not resuscitate; Z51.5 Encounter for palliative care; I10 Essential (primary) hypertension; K72.10 Chronic hepatic failure without coma; E87.6 Hypokalemia; E83.51 Hypocalcemia; E83.42 Hypomagnesemia; D69.59 Other secondary thrombocytopenia; Z71.41 Alcohol abuse counseling and surveillance of alcoholic; Z87.442 Personal history of urinary calculi; Z91.038 Other insect allergy status; Z79.899 Other long term (current) drug therapy; Z87.891 Personal history of nicotine dependence; Z98.890 Other specified postprocedural states
CPT/HCPCS: 36415; 51702; 70450; 71045; 76705; 80053; 80320; 81001; 82140; 82330; 82803; 82947; 83735; 83880; 84439; 84443; 85025; 85027; 85610; 85730; 86850; 86900; 86901; 87040; 96365-59; 96366-59; 96368; 99285-25; A9270; C1729; J0696; J2003; J2060; J2354; J2405; J2470; J2704; J3010; J3411; J3430; J3475; J3480; J7042; J7050; J7120; P9047; P9059